=== PATIENT | male | born 1975 | race Caucasian/White ===

== ENCOUNTER 2020-05-22 11:45 | Outpatient (RCR) | payer SELFPAY | END 2020-05-31 23:59 | disposition home or self-care (01) | LOC: MOT 11:45 | PROVIDERS: Referring Provider Orthopaedic Surgery; Visit Provider Orthopaedic Surgery | DX: S54.00XD Injury of ulnar nerve at forearm level, unspecified arm, subsequent encounter (principal) | CPT/HCPCS: 97022; 97110; 97140; 97166 ==

== ENCOUNTER 2021-01-31 20:22 | Emergency (ER) | payer SELFPAY ==
[2021-01-31 20:30] VITALS: BP 185/105; PULSE 80; RESP 17; TEMP 36.6; O2SAT 99; BMI 25.1
--- NOTE | 2021-01-31 20:30 | CTR_ITS ---
PROCEDURE INFORMATION: Exam: CT Abdomen And Pelvis With Contrast Exam date and time: 01/31/2021 9:06 PM Age: 45 years old Clinical indication: Abdominal pain; Localized; Right; Patient HX: RT side abd pain. TECHNIQUE: Imaging protocol: Computed tomography of the abdomen and pelvis with contrast. Radiation optimization: All CT scans at this facility use at least one of these dose optimization techniques: automated exposure control; mA and/or kV adjustment per patient size (includes targeted exams where dose is matched to clinical indication); or iterative reconstruction. Contrast material: OMNI 300; Contrast volume: 95 ml; Contrast route: INTRAVENOUS (IV); COMPARISON: No relevant prior studies available. RADIATION DOSE METRICS: Total DLP (mGy-cm): 1130.31 FINDINGS: Liver: Normal. No mass. Gallbladder and bile ducts: Contracted gallbladder. The bile ducts are normal. Pancreas: Normal. No ductal dilation. Spleen: Normal. No splenomegaly. Adrenal glands: Normal. No mass. Kidneys and ureters: 6 mm calculus in the right ureter at the level of the iliac vessels. Moderate right hydronephrosis. Diffuse right renal edema. Perinephric and periureteral stranding with mild enhancement of the urothelium in the right renal collecting system. Small hypodense lesion in the left kidney is too small to characterize but is most likely a cyst. No follow-up imaging is recommended. Stomach and bowel: Multiple round filling defects within loops of small bowel is presumably food material. The stomach, small bowel, and colon are otherwise unremarkable. Appendix: The appendix is visualized and is normal. Intraperitoneal space: Unremarkable. No free air. No significant fluid collection. Vasculature: Unremarkable. No abdominal aortic aneurysm. Lymph nodes: Unremarkable. No enlarged lymph nodes. Urinary bladder: Unremarkable as visualized. Reproductive: Unremarkable as visualized. Bones/joints: Unremarkable. No acute fracture. Soft tissues: Unremarkable. CT/CT abdomen pelvis w con* [id number] IMPRESSION: 1. 6 mm obstructing calculus in the right ureter, at the level of the iliac vessels. 2. Edematous right kidney with mild right urothelial enhancement. Infection is not excluded. Clinical correlation recommended. COMMENTS: Consistent with the [employer]'s Incidental Findings Committee white paper (J Am Dane Radiol 2018): Any incidental renal lesion less than 1 cm or classified as too small to characterize, or any incidental cystic renal lesion characterized as simple-appearing, is likely benign. No follow-up imaging is recommended for these lesions per consensus recommendations based on imaging criteria. Radiation Dose CTDIVOL = (mGy): DLP = 1130.31 (mGy-cm)
[2021-01-31 20:40] VITALS: BP 170/92; PULSE 92; RESP 18; O2SAT 98
[2021-01-31 21:01] LABS: Basophils # 0.1 10^3/uL (0.0-0.1); Basophils % 0.7 %; Eosinophils # 0.7 10^3/uL (0.0-0.8); Eosinophils % 4.5 %; Hematocrit 45.1 % (42.0-52.0); Hemoglobin 14.4 g/dL (11.7-16.6); Lymphocytes # 3.1 10^3/uL (0.8-4.8); Lymphocytes % 20.2 %; Mean Corpuscular HGB Conc 31.9 g/dL (30.0-36.0); Mean Corpuscular Hemoglobin 29.8 pg (28.0-34.0); Mean Corpuscular Volume 93.2 fL (80-94); Mean Platelet Volume 11.1 fL (7.4-10.4); Monocytes # 1.5 10^3/uL (0.2-0.9); Monocytes % 9.4 %; Neutrophils # 9.98 10^3/uL (1.8-7.7); Neutrophils % 64.8 %; Nucleated Red Blood Cells % 0 %; Platelet Count 338 10^3/cmm (130-400); Red Blood Count 4.84 10^6/uL (4.1-5.3); Red Cell Distribution Width 15.3 % (12.1-15.1); White Blood Count 15.4 10^3/uL (4.0-10.0)
[2021-01-31] MEDS: sodium chloride 0.9% 1,000 ML 999 ML IV (21:01)
--- NOTE | 2021-01-31 21:02 | W.ED.ABDPA2 ---
HPI - Abdominal Pain General: Chief Complaint: Abdominal Pain Stated Complaint: severe lower abd pain Time Seen by Provider: 01/31/21 20:25 Source: patient Mode of arrival: ambulatory Limitations: no limitations History of Present Illness: HPI narrative: 45-year-old male states he started having abdominal pain this morning got much worse tonight. States it is into his right testicle along with right lower quadrant. He states the pain is very sharp in nature and rates it a 8 out of 10. He denies any worsening improving factors. Denies any vomiting or diarrhea. He has had some nausea. MD elicited complaint: abdominal pain Associated Symptoms: Reports nausea; Denies chills, dysuria and fever(s) Review of Systems Const: Denies: fever(s), chills, body aches or change in appetite Eyes: Denies: blurry vision or eye discomfort ENMT: Denies: throat pain or dental pain Card: Denies: chest pain Resp: Denies: dyspnea GI: Reports: abdominal pain and nausea : Denies: dysuria Musc: Denies: neck pain or back pain Skin/Breast: Denies: rash Neuro: Denies: headache(s) Psych: Denies: depression Yovanny/Lymph: Denies: easy bruising All/Imm: Denies: urticaria PFSH ED PFSH: Surgical History (Updated 05/24/20 @ 10:25 by KIKI Diaz) History of surgery on arm Social History (Updated 05/24/20 @ 09:36 by Fatimah Harrington LPN) Smoking and tobacco status: current every day smoker cigarettes Packs smoked per day: 0.75 Quit status (tobacco): not considering quitting Alcohol intake: current Alcohol intake frequency: holidays/special occasions only History of recent travel: No Current gender identity: Male Physical Exam Const: COMMON NORMALS: no acute distress, patient oriented x3 and healthy appearing HENMT: COMMON NORMALS: normocephalic and atraumatic HEAD & SCALP: normocephalic and atraumatic Eye: COMMON NORMALS: Equal, round and reactive pupils present and EOMs intact bilaterally PUPIL: Yes Equal, round and reactive pupils present Neck/C-Spine: COMMON NORMALS: full ROM and supple Chest: COMMONS NORMALS: normal inspection of the chest and normal palpation of entire chest wall Resp: COMMON NORMALS: normal respiratory effort, No retractions, No use of accessory muscles and clear to auscultation bilaterally AUSCULTATION: clear to auscultation bilaterally Cardio: COMMON NORMALS: regular rate, regular rhythm and No murmurs present (Cardio) RATE: regular rate RHYTHM: regular rhythm GI: COMMON NORMALS: Normal to inspection, nondistended, normoactive bowel sounds present, Soft to palpation and no masses PALPATION: Yes Soft to palpation and Yes Tenderness to palpation present (GI) Details: RLQ Extremity: COMMON NORMALS: normal to inspection and full ROM Neuro: COMMON NORMALS: patient oriented x3, moves all extremities and no focal motor deficits Psych: COMMON NORMALS: mental status grossly normal, Normal thought process present and cooperative THOUGHT PROCESS: Normal thought process present Skin: COMMON NORMALS: no rashes or lesions noted and no wounds GENERAL SKIN EXAM: no rashes or lesions noted Course Vital Signs: Vital signs: Vital Signs Temperature 97.9 F 01/31/21 20:30 Pulse Rate 89 01/31/21 22:38 Respiratory Rate 18 01/31/21 22:38 Blood Pressure 166/104 01/31/21 22:38 Pulse Oximetry 98 01/31/21 22:38 MDM - Abdominal Pain MDM Narrative: Medical decision making narrative: Patient presents here with flank pain and was found to have a kidney stone. He has no signs of urinary tract infection. His pain is much improved here. We will discharge him home with a strainer and he is to follow-up with Dr. Landeros. He is to return if worsening. He understands agrees to plan. Lab Data: Labs: Lab Results 01/31/21 01/31/21 01/31/21 Range/Units 20:58 20:58 21:29 WBC 15.4 H (4.0-10.0) 10^3/ uL RBC 4.84 (4.1-5.3) 10^6/u L Hgb 14.4 (11.7-16.6) g/dL Hct 45.1 (42.0-52.0) % MCV 93.2 (80-94) fL MCH 29.8 (28.0-34.0) pg MCHC 31.9 (30.0-36.0) g/dL RDW 15.3 H (12.1-15.1) % Plt Count 338 (130-400) 10^3/c mm MPV 11.1 H (7.4-10.4) fL Neut % (Auto) 64.8 % Lymph % (Auto) 20.2 % Traverse % (Auto) 9.4 % Eos % (Auto) 4.5 % Baso % (Auto) 0.7 % Neut # (Auto) 9.98 H (1.8-7.7) 10^3/u L Lymph # (Auto) 3.1 (0.8-4.8) 10^3/u L Traverse # (Auto) 1.5 H (0.2-0.9) 10^3/u L Eos # (Auto) 0.7 (0.0-0.8) 10^3/u L Baso # (Auto) 0.1 (0.0-0.1) 10^3/u L Nucleated RBC % (a uto) 0 % Nucleated RBCs # 0.0 /100WBC Sodium 136 (136-145) mmol/L Potassium 4.3 (3.5-5.1) mmol/L Chloride 102 (98-107) mmol/L Carbon Dioxide 22 (22-29) mmol/L Anion Gap 16.3 (5-19) BUN 13 (6-20) mg/dL Creatinine 0.7 (0.7-1.2) mg/dL GFR Calculation 121.4 (90-130) mL/min Glucose 94 (65-115) mg/dL Calculated Osmolal ity 282 L (285-295) mOsm/k g Calcium 8.3 L (8.5-10.5) mg/dL Total Bilirubin 0.2 (0.15-1.2) mg/dL AST 29 (0-40) U/L ALT 22 (0-41) U/L Alkaline Phosphata se 128 (40-130) IU/L Total Protein 7.1 (6.6-8.7) g/dL Albumin 4.2 (3.5-5.2) g/dL Globulin 2.9 (1.3-4.6) g/dL Lipase 32 (13-60) U/L Urine Color Other (Yellow) Urine Appearance Cloudy (CLEAR) Urine pH 8 H (5-7) Ur Specific Gravit y 1.025 (1.005-1.030) Urine Protein Neg (Negative) Urine Glucose (UA) Norm (Normal) Urine Ketones Negative (Negative) Urine Blood 3+ H (Negative) Urine Nitrate Negative (Negative) Urine Bilirubin Neg (Negative) Prot Sulfosalicyli c Acd Negative (Negative) Urine Urobilinogen Norm (Negative) mg/dL Ur Leukocyte Brittni ase Trace H (Negative) Urine RBC Too numerous to c nt H (0-2) /hpf Urine WBC 0-4 H (0-5) /hpf Ur Squamous Epith Cells 0-4 H (0-5) /hpf Amorphous Sediment 4+ /hpf Urine Bacteria 1+ H (NONE) /hpf Urine Mucus N /hpf Imaging Data ^: CT Abd/Pel: Radiologist's impression: [employer] [address] [address] Scan Report Signed Patient: Bennett Barraza Unit #: [id number] : 1975 Age/Sex: 45 / M ADM Date: 01/31/21 Loc: ER Room/Bed: Attending Dr: Ordering Provider/Ordering MD: Isrrael Wu MD Date of Service: 01/31/21 Procedure(s): CT abdomen pelvis w con* [id number] Accession Number(s): [id number] Report Number: [id number] PROCEDURE INFORMATION: Exam: CT Abdomen And Pelvis With Contrast Exam date and time: 01/31/2021 9:06 PM Age: 45 years old Clinical indication: Abdominal pain; Localized; Right; Patient HX: RT side abd pain. TECHNIQUE: Imaging protocol: Computed tomography of the abdomen and pelvis with contrast. Radiation optimization: All CT scans at this facility use at least one of these dose optimization techniques: automated exposure control; mA and/or kV adjustment per patient size (includes targeted exams where dose is matched to clinical indication); or iterative reconstruction. Contrast material: OMNI 300; Contrast volume: 95 ml; Contrast route: INTRAVENOUS (IV); COMPARISON: No relevant prior studies available. RADIATION DOSE METRICS: Total DLP (mGy-cm): 1130.31 FINDINGS: Liver: Normal. No mass. Gallbladder and bile ducts: Contracted gallbladder. The bile ducts are normal. Pancreas: Normal. No ductal dilation. Spleen: Normal. No splenomegaly. Adrenal glands: Normal. No mass. Kidneys and ureters: 6 mm calculus in the right ureter at the level of the iliac vessels. Moderate right hydronephrosis. Diffuse right renal edema. Perinephric and periureteral stranding with mild enhancement of the urothelium in the right renal collecting system. Small hypodense lesion in the left kidney is too small to characterize but is most likely a cyst. No follow-up imaging is recommended. Stomach and bowel: Multiple round filling defects within loops of small bowel is presumably food material. The stomach, small bowel, and colon are otherwise unremarkable. Appendix: The appendix is visualized and is normal. Intraperitoneal space: Unremarkable. No free air. No significant fluid collection. Vasculature: Unremarkable. No abdominal aortic aneurysm. Lymph nodes: Unremarkable. No enlarged lymph nodes. Urinary bladder: Unremarkable as visualized. Reproductive: Unremarkable as visualized. Bones/joints: Unremarkable. No acute fracture. Soft tissues: Unremarkable. CT/CT abdomen pelvis w con* [id number] IMPRESSION: 1. 6 mm obstructing calculus in the right ureter, at the level of the iliac vessels. 2. Edematous right kidney with mild right urothelial enhancement. Infection is not excluded. Clinical correlation recommended. COMMENTS: Discharge Plan Discharge Patient Disposition: Home Clinical Impression: Kidney stone Condition: Stable Prescriptions: New hydrocodone-acetaminophen 5-325 mg tablet 1 tab PO Q6H PRN (Reason: pain) Qty: 14 RF: 0 ondansetron 4 mg tablet,disintegrating 4 mg PO Q6H PRN (Reason: nausea and vomiting) Qty: 14 RF: 0 Discharge Orders: Discharge ED (Routine); Ordered 01/31/21 Ordered By: Isrrael Wu Referrals: Kirk Landeros MD [Physician] - 1-3 days Discharge Diet: Advance as tolerated Discharge Activity: Resume usual activity Patient Instructions: Kidney Stones (ED), Opioid Safety Coding Level of Care Code 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
[2021-01-31] MEDS: ondansetron 2 mg/ML SDV 2 mL 4 MG IVP (21:11)
[2021-01-31] MEDS: HYDROmorphone 1 mg/mL INJ 1 mL IVP ×2 (21:11→22:33)
[2021-01-31] MEDS: iohexol 300 mg/mL 100 mL Btl IV (21:18)
[2021-01-31 21:19] LABS: Alanine Aminotransferase 22 U/L (0-41); Albumin Level 4.2 g/dL (3.5-5.2); Alkaline Phosphatase 128 IU/L (40-130); Blood Urea Nitrogen 13 mg/dL (6-20); Calcium 8.3 mg/dL (8.5-10.5); Carbon Dioxide 22 mmol/L (22-29); Chloride 102 mmol/L (98-107); Globulin 2.9 g/dL (1.3-4.6); Glomerular Filtration Rate 121.4 mL/min (90-130); Glucose 94 mg/dL (65-115); Lipase 32 U/L (13-60); Osmolality Calculated 282 mOsm/kg (285-295); Sodium 136 mmol/L (136-145); Total Bilirubin 0.2 mg/dL (0.15-1.2); Total Protein 7.1 g/dL (6.6-8.7)
[2021-01-31 21:20] LABS: Anion Gap 16.3 (5-19); Aspartate Amino Transferase 29 U/L (0-40); Potassium 4.3 mmol/L (3.5-5.1)
[2021-01-31 21:43] LABS: Add Urine Microscopic? YES; Bilirubin Urine Neg (Negative); Blood Urine 3+ (Negative); Glucose Urine UA Norm (Normal); Ketones Urine Negative (Negative); Leukocyte Esterase Urine Trace (Negative); Nitrate Urine Negative (Negative); Protein Urine Neg (Negative); Specific Gravity, Urine 1.025 (1.005-1.030); Sulfosalicylic Acid Urine Negative (Negative); Urine Appearance Cloudy (CLEAR); Urine Color Other (Yellow); Urobilinogen Urine Norm (Negative); pH Urine 8 (5-7)
[2021-01-31 21:44] LABS: Add Urine Culture? No; Amorphous Sediment Urine 4+ /hpf; Bacteria Urine 1+ /hpf; Mucus Urine N /hpf; RBC Urine TOO NUMEROUS TO CNT /hpf (0-2); Squamous Epithelial Cell Urine 0-4 /hpf (0-5); WBC Urine 0-4 /hpf (0-5)
[2021-01-31 22:05] VITALS: PULSE 83; RESP 16; O2SAT 99
[2021-01-31 22:33] VITALS: RESP 18; O2SAT 97
[2021-01-31] MEDS: ketorolac 30 mg/mL INJ IVP (22:34)
[2021-01-31 22:38] VITALS: BP 166/104; PULSE 89; RESP 18; O2SAT 98
[2021-01-31 22:50] VITALS: BP 170/106; PULSE 85; RESP 18; TEMP 36.6; O2SAT 97
--- NOTE | 2021-02-01 09:27 | DCPLANNER ---
broiler manager had message to schedule a follow up appointment for patient with Dr. Landeros for kidney stone. broiler manager called the office of Dr. Landeros, spoke with Emely, gave clinic patients information. broiler manager was told that patients information would be printed and reviewed. Clinic will call patient with appointment information.
--- NOTE | 2021-02-02 11:25 | DCPLANNER ---
Patient had an appointment scheduled for 02.02.21 - appointment cancelled.
== END 2021-01-31 22:59 | disposition home or self-care (01) ==
PROVIDERS: Emergency Provider Emergency Medicine
DX: N20.0 Calculus of kidney (principal); F17.210 Nicotine dependence, cigarettes, uncomplicated
CPT/HCPCS: 74177; 80053; 81001; 83690; 85025; 96361; 96374; 96375; 96376; 99284; J1170; J1885; J2405; J7030; Q9967

== ENCOUNTER 2021-02-08 07:58 | Outpatient (CLI) | payer SELFPAY ==
--- NOTE | 2021-02-08 08:05 | XR_ITS ---
WS: [id number] KUB, AP view, 02/08/2021 Clinical Data: N20.0 - Calculus of kidney Comparison: CT abdomen and pelvis, 01/31/2021 Findings: No abnormal intraabdominal masses or calcifications are seen. There is no dilatated small bowel or ev idence of obstruction. The distal right ureteral calculus seen on CT abdomen pelvis is not identified on this study. The rig ht kidney is obscured by overlying fecal material in the colon. XR/XR KUB [id number] Impression: Negative KUB.
== END 2021-02-08 07:59 | disposition home or self-care (01) ==
LOC: RAD 08:02
PROVIDERS: PCP Urology; Visit Provider Urology
DX: N20.0 Calculus of kidney (principal)
CPT/HCPCS: 74018; 81003

== ENCOUNTER 2021-02-19 09:03 | Outpatient (CLI) | payer SELFPAY ==
--- NOTE | 2021-02-19 09:08 | XRR_ITS ---
PROCEDURE INFORMATION: Exam: XR Abdomen Exam date and time: 02/19/2021 9:08 AM Age: 45 years old Clinical indication: Condition or disease; Kidney or ureter condition; Calculus (stone) in ureter; Additional info: Ureteral stone TECHNIQUE: Imaging protocol: XR of the abdomen. Views: Frontal supine view of the abdomen. 1 View. COMPARISON: CR XR KUB [id number] 02/08/2021 8:11 AM FINDINGS: Gastrointestinal tract: Prominent bowel gas and stool. Intraperitoneal space: Residual subcentimeter pelvic calcifications, presumably vascular in etiology. CT detected 6 mm right ureteral calculus is not well visualized on the current study, and can be better evaluated with repeat CT if clinically indicated. Incomplete visualization of the superior most abdomen. Organs: Partial obscuration of the renal fossa by overlying bowel gas and stool. Bones/joints: Unremarkable. XR/XR KUB [id number] IMPRESSION: CT detected 6 mm right ureteral calculus is not well visualized on the current study, and can be better evaluated with repeat CT if clinically indicated.
== END 2021-02-19 09:04 | disposition home or self-care (01) ==
LOC: RAD 09:06
PROVIDERS: Visit Provider Urology
DX: N20.1 Calculus of ureter (principal)
CPT/HCPCS: 74018; 81003

== ENCOUNTER 2021-03-08 09:03 | Outpatient (CLI) | payer SELFPAY ==
--- NOTE | 2021-03-08 09:00 | XR_ITS ---
WS: [id number] KUB, AP view, 03/08/2021 Clinical Data: STONE Comparison: KUB, 02/19/2021. Findings: No abnormal intraabdominal masses or calcifications are seen. There is no dilatated small bowel or ev idence of obstruction. Fecal material and bowel gas obscure detail over both kidneys. There are phleboliths in the true pelv is. XR/XR KUB [id number] Impression: Negative KUB.
== END 2021-03-08 09:04 | disposition home or self-care (01) ==
PROVIDERS: Visit Provider Urology
DX: N20.9 Urinary calculus, unspecified (principal); Z20.822 Contact with and (suspected) exposure to COVID-19
CPT/HCPCS: 74018; 81003; 87635

== ENCOUNTER 2021-03-09 12:52 | Day surgery (SDC) | payer SELFPAY ==
[2021-03-08 14:30] VITALS: BMI 25.8
[2021-03-09] VITALS (10 sets, daily range): BP systolic 131–175; BP diastolic 77–117; PULSE 66–101; RESP 13–24; TEMP 36.1–36.8; O2SAT 96–99
--- NOTE | 2021-03-09 13:01 | XR_ITS ---
WS: [id number] KUB, AP view, 03/09/2021 Clinical Data: Preop ESWL Comparison: KUB, 03/08/2021. Findings: No abnormal intraabdominal masses are seen. There is no dilatated small bowel or evidence of obstruct ion. There is a right true pelvic calcification measuring 0.6 cm which could represent the distal right ur eteral calculus. Fecal material in colon gas obscures detail over the kidneys. XR/XR KUB [id number] Impression: Right true pelvic calcification which may represent distal right ureteral calcu wm.
[2021-03-09] MEDS: sodium chloride 0.9% 1,000 ML 30 ML (13:56)
--- NOTE | 2021-03-09 14:02 | ANES.PREANE2 ---
Pre-Anesthetic Assessment Pre-Anesthetic Assessment: Height/Weight: Height 1.78 m Weight 81.647 kg Temp Pulse Resp BP Pulse Ox 98.2 F 91 18 175/117 97 03/09/21 13:35 03/09/21 13:35 03/09/21 13:35 03/09/21 13:35 03/09/21 13:35 Preop Diagnosis: Refractory right distal ureteral stone, Symptomatic Proposed Procedure: Operation Date: 03/09/21 13:15 Proposed Procedures p ESWL Extracorporeal Shockwave Lithotrispy 74728 38436 n20.1(Right) - Kirk Landeros MD s possible Cystoscopy(Not Applicable) - Kirk Landeros MD s Ureteral Stent Placement(Not Applicable) - Kirk Landeros MD Familial anesthetic complications: None Was Beta Gaetano taken within 24 hours: N/A Was Clonidine taken within 24 hours: N/A Last intake: Intake Last Liquid Date 03/09/21 Last Liquid Time 09:30 (water) Last Solid Date 03/08/21 Last Solid Time 18:30 Social: Social History: Alcohol and Tobacco Comment: up to a pint of vodka a day - denies any hx of withdrawal symptom Exam: Pre-Anes Outpt Exam: alert, oriented x 3, clear to auscultation bilaterally and regular rate & rhythm Airway: Cervical ROM: WNL MP: 3 Dentition: Loose (multiple loose) CV/HEM: CV/HEM: HTN (pre-HTN (managed by lifestyle)) Hepatic: Hepatic: Hepatitis (C) Musc/skel: Musc/skel: RA Comments: Remote r hand injury Anesthetic Plan: ASA status: 2 Anesthesia: General Risk of > 500 ml blood loss (7ml/kg in children): No PFSH Anesthesia PFSH: Medical History Right ureteral stone Surgical History History of surgery on arm Family History Father , at age 44 Hepatitis C Cirrhosis of liver Social History Alcohol intake: current Alcohol intake frequency: few times a week Marital status: Current occupational status: disabled History of recent travel: No Data Anesthesia Cardiac Studies: No Data to Display
[2021-03-09] MEDS: fentaNYL 50 mcg/mL INJ 2mL IVP (15:37)
--- NOTE | 2021-03-09 15:56 | W.PM.OPSUD ---
Surgery/Procedure H&P Update DATE OF PROCEDURE: March 09, 2021 DATE H&P PERFORMED: 03/08/21 H&P UPDATE INFORMATION: I have reviewed H&P completed within last 30 days, I have examined patient prior to procedure, No changes to prior documentation and H&P is in [facility] EMR on date indicated CHANGES TO PREVIOUS DOCUMENTATION: Stone in same position on today's KUB as it was in clinic. To proceed as planned. Informed consent reviewed and explained and agreed upon again. PREOP DIAGNOSIS: Refractory right distal ureteral stone, Symptomatic PLANNED PROCEDURE: Operation Date: 03/09/21 13:15 Proposed Procedures p ESWL Extracorporeal Shockwave Lithotrispy 01146 05203 n20.1(Right) - Kirk Landeros MD s possible Cystoscopy(Not Applicable) - Kirk Landeros MD s Ureteral Stent Placement(Not Applicable) - Kirk Landeros MD
--- NOTE | 2021-03-09 15:57 | P.OP_ITS ---
Operative Report Date of procedure: March 09, 2021 Pre-op Diagnosis: Refractory right distal ureteral stone, Symptomatic Post-op diagnosis: same Procedure Done: 1. Extracorporeal shockwave lithotripsy right distal ureteral stone, no stent Surgeon: Tigre Aoc Aadc Operations Staff Officer: Viola Lobo Anesthesia: General Estimated blood loss: None Urine output: Not measured Complications: None Condition: stable Disposition: PACU Brief History: Bennett is a very pleasant 45-year-old white male recently diagnosed with a right ureteral calculus. He has undergone an extensive period of trying to pass it spontaneously but it is reached the distal ureter and no farther. Has had increasing symptoms over the last several days and requested abandonment of conservative measures in hopes of definitive treatment. Based on that he is considered an urgent/time sensitive case and is admitted to outpat ient surgery for extracorporeal shockwave lithotripsy to the right distal ureteral stone possible stent Procedure: After routine preoperative evaluation examination and obtaining of informed consent he was taken to the operating suite on 03/09/2021 where general anesthesia was administered without difficulty after appropriate timeout was performed, SCDs confirmed to be functioning, preoperative antibiotics administered, beta-derrick protocol confirmed. Placed in supine position on the Dornier unit such that the stone was located at the focal point with the shock head positioned anteriorly. The stone was easily identified and focused upon. Biplanar fluoroscopy was utilized for localization. Shockwave was initiated intensity of 1 and advanced an intensity of 4. Rate was initiated 60 and later advanced to a rate of 90 after significant change was noted TOTAL SHOCKS: 2000 RESULTS: Excellent change. Could not clearly see any definitive stone fragments at the completion. Because of the excellent response it was decided to not leave a stent in. Awakened in the operating room and returned to recovery room in stable condition. Tolerated procedure well without complications. PLANS: 1. Anticipate discharge from outpatient surgery tonight 2. Follow-up: 2 weeks with KUB
--- NOTE | 2021-03-09 18:48 | PC.NURSE ---
HYDROCODONE RX SENT TO [facility] YESTERDAY BY DR HORAN. PT SAID HE DIDN'T KNOW IT WAS NARCOTICS SO HE DIDN'T PICK IT UP YET. DR HORAN NOTIFIED AND HE SENT A SCRIPT TO [facility] FOR ENOUGH PAIN MEDICATION TO LAST TO MORNING WHEN HE CAN FILL FIRST RX.
== END 2021-03-09 18:20 | disposition home or self-care (01) ==
PROVIDERS: Visit Provider Urology
PROC: (CPT 50590; principal; 2021-03-09 13:15)
DX: N20.1 Calculus of ureter (principal); I10 Essential (primary) hypertension; Z86.19 Personal history of other infectious and parasitic diseases; M06.9 Rheumatoid arthritis, unspecified
CPT/HCPCS: 50590; 74018; J1100; J2250; J2405; J2704; J2710; J3010; J3490; J7030

== ENCOUNTER 2021-05-01 12:09 | Outpatient (CLI) | payer SELFPAY ==
--- NOTE | 2021-05-01 12:13 | XRR_ITS ---
PROCEDURE INFORMATION: Exam: XR Abdomen Exam date and time: 05/01/2021 12:13 PM Age: 45 years old Clinical indication: Condition or disease; Kidney or ureter condition; Calculus (stone) in kidney; Prior surgery; Additional info: Ureteral stone TECHNIQUE: Imaging protocol: XR of the abdomen. Views: Frontal supine view of the abdomen. 1 View. COMPARISON: CR XR KUB [id number] 03/09/2021 1:14 PM FINDINGS: Gastrointestinal tract: Normal. No bowel dilation. Organs: Previously suspected right pelvic 6 mm ureteral calculus is no longer visualized. Vasculature: Several calcified phleboliths seen. Bones/joints: Unremarkable. Other findings: Punctate rounded radiodensity seen over the left upper pelvis may be extrinsic to the patient. XR/XR KUB [id number] IMPRESSION: 1. Previously suspected right pelvic 6 mm ureteral calculus is no longer visualized. 2. Punctate rounded radiodensity seen over the left upper pelvis may be extrinsic to the patient. 3. Several calcified phleboliths seen.
== END 2021-05-01 12:10 | disposition home or self-care (01) ==
PROVIDERS: Visit Provider Urology
DX: N20.1 Calculus of ureter (principal); I87.8 Other specified disorders of veins; R10.9 Unspecified abdominal pain
CPT/HCPCS: 74018; 81003

== ENCOUNTER 2021-05-30 13:41 | Outpatient (CLI) | payer SELFPAY ==
--- NOTE | 2021-05-30 13:00 | XR_ITS ---
WS: [id number] Exam: XR KUB [id number] Date/Time of Exam: 05/30/2021 1:46 PM Reason For Exam: ureteral stone No bowel obstruction or free air. No calcifications noted in the region of the kidneys. No sign of or rupal enlargement. Regional bony elements appear normal. XR/XR KUB [id number] IMPRESSION: 1. No acute abdominal process.
== END 2021-05-30 13:42 | disposition home or self-care (01) ==
PROVIDERS: Visit Provider Urology
DX: N20.1 Calculus of ureter (principal)
CPT/HCPCS: 74018; 81003

== ENCOUNTER 2023-03-30 19:06 | Observation (INO) | payer MEDICAID, SELFPAY ==
[2023-03-30 19:26] VITALS: BP 196/116; PULSE 88; RESP 16; TEMP 36.4; O2SAT 99; BMI 25.1
--- NOTE | 2023-03-30 20:48 | W.ED.ABDPA2 ---
HPI - Abdominal Pain General: Chief Complaint: Abdominal Pain Stated Complaint: abd pain Time Seen by Provider: 03/30/23 20:48 History of Present Illness: Mr. Barraza is a 47-year-old gentleman with history of kidney stones presenting to the emergency department for abdominal pain. He notes onset of symptoms approximately 2 PM today without known specific provoking event. He notes some urinary hesitancy and periumbilical abdominal pain. In the past he has had pain like this associated with kidney stones however has also had other locations of pain. Severe in intensity. Sharp in quality. No other specific changes in health, exacerbating, or alleviating factors identified. Onset (ago): hour(s) Pain Consistency: constant Severity: severe Quality: sharp Review of Systems General: Reports: 10 or more systems reviewed and unremarkable except in HPI and below PFSH ED PFSH: Medical History Carpal tunnel syndrome on both sides H/O fracture of tibia surgery Hypertension Lipoma excised from back Right ureteral stone Surgical History History of surgery on arm Family History Father , at age 44 Hepatitis C Cirrhosis of liver Social History Alcohol intake: current Alcohol intake frequency: few times a week Substance/Drug Use: current Substance/Drug use frequency: daily Marital status: Current occupational status: disabled Physical Exam Const: COMMON NORMALS: alert GENERAL APPEARANCE: cooperative and well developed HENMT: COMMON NORMALS: normocephalic and atraumatic HEAD & SCALP: normocephalic and atraumatic Eye: COMMON NORMALS: conjunctivae normal CONJUNCTIVA: Yes conjunctivae normal SCLERA: sclerae normal Neck/C-Spine: COMMON NORMALS: supple GENERAL: Yes trachea midline Resp: COMMON NORMALS: clear to auscultation bilaterally EFFORT & INSPECTION: Yes able to speak in complete sentences AUSCULTATION: clear to auscultation bilaterally Cardio: COMMON NORMALS: regular rate and regular rhythm RATE: regular rate RHYTHM: regular rhythm GI: COMMON NORMALS: Soft to palpation PALPATION: Yes Soft to palpation, Yes Tenderness to palpation present (GI), No Guarding due to palpation present (GI) and No Rigid due to palpation Extremity: GENERAL: Yes normal exam except as noted and No edema Neuro: COMMON NORMALS: moves all extremities SENSORIUM/ORIENTATION: Yes alert and No Orientation impaired Psych: COMMON NORMALS: mental status grossly normal and Normal thought process present THOUGHT PROCESS: Normal thought process present Course Vital Signs: Vital signs: Vital Signs Temperature 98.3 F 04/01/23 13:40 Pulse Rate 86 04/01/23 13:40 Respiratory Rate 18 04/01/23 13:40 Blood Pressure 164/90 04/01/23 13:40 Pulse Oximetry 98 04/01/23 13:40 Oxygen Delivery Me thod Room Air 04/01/23 11:14 MDM - Abdominal Pain Medical Decision Making 47-year-old gentleman presenting with abdominal symptoms. Exam as above. Uncomfortable. No evidence of acute surgical abdomen. Labs with leukocytosis, normal hemoglobin and platelet count. Metabolic panel with mildly elevated BUN and perhaps minimal dehydration. Urinalysis with probable UTI. Given severity of symptoms CT imaging is appropriate. Appendix appears mildly dilated however there is air in the tip. There is hepatic steatosis and fluid within the small bowel which may be enteritis. Discussed with surgery service. They will consult and agreed patient would be reasonable for inpatient observation. During ED course patient treated with antiemetic, analgesia, fluids. The results of ED evaluation were discussed with the patient including plan for admission due to requirement for level of care not available if discharged to prevent significant worsening/deterioration. Patient agreeable with plan. Discussed with hospitalist service who was agreeable to admit patient. Medical Records I reviewed the patient's medical records. Lab Data I reviewed the patient's lab results. 04/01/23 05:09 04/01/23 05:09 Labs/Radiology: Radiology Impressions Abdomen/Pelvis CT 03/30/23 22:04 IMPRESSION: 1. Appendix is mildly dilated to 8.7 mm with possible minimal surrounding edema, however, demonstrates air in the tip, findings are not definitive for appendicitis by CT alone, please closely correlate clinically. 2. Hepatic steatosis. 3. Heterogeneous appearance of the kidneys may be due to bolus timing, please correlate for pyelonephritis. 4. Prominent fluid in the small bowel without dilation may reflect an enteritis. 5. Diverticulosis without diverticulitis. Laboratory Results WBC 18.7 10^3/uL (4.0-10.0) H 03/30/23 21:00 RBC 5.00 10^6/uL (4.1-5.3) 03/30/23 21:00 Hgb 15.9 g/dL (11.7-16.6) 03/30/23 21:00 Hct 47.5 % (42.0-52.0) 03/30/23 21:00 MCV 95.0 fl (80-94) H 03/30/23 21:00 MCH 31.8 pg (28.0-34.0) 03/30/23 21:00 MCHC 33.5 g/dL (30.0-36.0) 03/30/23 21:00 RDW 13.0 % (12.1-15.1) 03/30/23 21:00 Plt Count 326 10^3/cmm (130-400) 03/30/23 21:00 MPV 10.8 fL (7.4-10.4) H 03/30/23 21:00 Neut % (Auto) 82.2 % 03/30/23 21:00 Lymph % (Auto) 10.2 % 03/30/23 21:00 [place] % (Auto) 5.9 % 03/30/23 21:00 Eos % (Auto) 0.9 % 03/30/23 21:00 Baso % (Auto) 0.3 % 03/30/23 21:00 Neut # (Auto) 15.38 10^3/uL (1.8-7.7) H 03/30/23 21:00 Lymph # (Auto) 1.9 10^3/uL (0.8-4.8) 03/30/23 21:00 [place] # (Auto) 1.1 10^3/uL (0.2-0.9) H 03/30/23 21:00 Eos # (Auto) 0.2 10^3/uL (0.0-0.8) 03/30/23 21:00 Baso # (Auto) 0.1 10^3/uL (0.0-0.1) 03/30/23 21:00 Nucleated RBC % (auto) 0 % 03/30/23 21:00 Nucleated RBCs # 0.0 /100WBC 03/30/23 21:00 Sodium 136 mmol/L (136-145) 03/30/23 21:00 Potassium 3.7 mmol/L (3.5-5.1) 03/30/23 21:00 Chloride 99 mmol/L (98-107) 03/30/23 21:00 Carbon Dioxide 24 mmol/L (22-29) 03/30/23 21:00 Anion Gap 16.7 (5-19) 03/30/23 21:00 BUN 24 mg/dL (6-20) H 03/30/23 21:00 Creatinine 0.9 mg/dL (0.7-1.2) 03/30/23 21:00 GFR Calculation 90.1 mL/min (90-130) 03/30/23 21:00 Glucose 117 mg/dL (65-115) H 03/30/23 21:00 Calculated Osmolality 287 mOsm/kg (285-295) 03/30/23 21:00 Calcium 9.9 mg/dL (8.5-10.5) 03/30/23 21:00 Total Bilirubin 0.7 mg/dL (0.15-1.2) 03/30/23 21:00 AST 27 U/L (0-40) 03/30/23 21:00 ALT 23 U/L (0-41) 03/30/23 21:00 Alkaline Phosphatase 137 U/L (40-130) H 03/30/23 21:00 Total Protein 7.8 g/dL (6.6-8.7) 03/30/23 21:00 Albumin 4.3 g/dL (3.5-5.2) 03/30/23 21:00 Globulin 3.5 g/dL (1.3-4.6) 03/30/23 21:00 Lipase 18 U/L (13-60) 03/30/23 21:00 Urine Color Yellow (Yellow) 03/30/23 21:43 Urine Appearance Hazy (CLEAR) A 03/30/23:43 Urine pH 6 (5-7) 03/30/23 21:43 Ur Specific [place] 1.020 (1.005-1.030) 03/30/23 21:43 Urine Protein Trace (Negative) 03/30/23:43 Urine Glucose (UA) 1+ (Normal) H 03/30/23 21:43 Urine Ketones Negative (Negative) 03/30/23 21:43 Urine Blood Neg (Negative) 03/30/23 21:43 Urine Nitrate Negative (Negative) 03/30/23 21:43 Urine Bilirubin Neg (Negative) 03/30/23 21:43 Urine Urobilinogen Norm mg/dL (Negative) 03/30/23 21:43 Ur Leukocyte Esterase Trace (Negative) H 03/30/23 21:43 Urine RBC 0-4 /hpf (0-2) H 03/30/23 21:43 Urine WBC 5-10 /hpf (0-5) H 03/30/23 21:43 Ur Squamous Epith Cells 0-4 /hpf (0-5) H 03/30/23 21:43 Amorphous Sediment Not Reportable 03/30/23 21:43 Urine Bacteria 3+ /hpf (NONE) H 03/30/23 21:43 Hyaline Casts 0-4 /lpf H 03/30/23 21:43 Discharge Plan Discharge Patient Disposition: Placed in Observation Admit Provider: Jasvir Dolan Clinical Impression: Abdominal pain, Leukocytosis Coding Level of Care Code ED Voice Data Communications Engineer for Tray Castillo
[2023-03-30] MEDS: ondansetron 2 mg/ML SDV 2 mL 4 MG IVP (21:03)
[2023-03-30] MEDS: ketorolac 30 mg/mL INJ 15 MG IVP (21:03)
[2023-03-30] MEDS: morphine 4 mg/mL SDV 1 mL IVP ×2 (21:03→22:25)
[2023-03-30 21:16] VITALS: BP 169/110; PULSE 84; RESP 16; O2SAT 96
[2023-03-30 21:30] LABS: Basophils # 0.1 10^3/uL (0.0-0.1); Basophils % 0.3 %; Eosinophils # 0.2 10^3/uL (0.0-0.8); Eosinophils % 0.9 %; Hematocrit 47.5 % (42.0-52.0); Hemoglobin 15.9 g/dL (11.7-16.6); Lymphocytes # 1.9 10^3/uL (0.8-4.8); Lymphocytes % 10.2 %; Mean Corpuscular HGB Conc 33.5 g/dL (30.0-36.0); Mean Corpuscular Hemoglobin 31.8 pg (28.0-34.0); Mean Platelet Volume 10.8 fL (7.4-10.4); Monocytes # 1.1 10^3/uL (0.2-0.9); Monocytes % 5.9 %; Neutrophils # 15.38 10^3/uL (1.8-7.7); Neutrophils % 82.2 %; Nucleated Red Blood Cells % 0 %; Platelet Count 326 10^3/cmm (130-400); White Blood Count 18.7 10^3/uL (4.0-10.0)
[2023-03-30 21:32] LABS: Alanine Aminotransferase 23 U/L (0-41); Albumin Level 4.3 g/dL (3.5-5.2); Alkaline Phosphatase 137 U/L (40-130); Anion Gap 16.7 (5-19); Aspartate Amino Transferase 27 U/L (0-40); Blood Urea Nitrogen 24 mg/dL (6-20); Calcium 9.9 mg/dL (8.5-10.5); Carbon Dioxide 24 mmol/L (22-29); Chloride 99 mmol/L (98-107); Creatinine Clr Calc Pharmacy 110.5119; Globulin 3.5 g/dL (1.3-4.6); Glomerular Filtration Rate 90.1 mL/min (90-130); Glucose 117 mg/dL (65-115); Lipase 18 U/L (13-60); Osmolality Calculated 287 mOsm/kg (285-295); Potassium 3.7 mmol/L (3.5-5.1); Sodium 136 mmol/L (136-145); Total Bilirubin 0.7 mg/dL (0.15-1.2); Total Protein 7.8 g/dL (6.6-8.7)
[2023-03-30 21:49] LABS: Add Urine Microscopic? YES; Bilirubin Urine Neg (Negative); Blood Urine Neg (Negative); Glucose Urine UA 1+ (Normal); Ketones Urine Negative (Negative); Leukocyte Esterase Urine Trace (Negative); Nitrate Urine Negative (Negative); Protein Urine Trace (Negative); Urine Appearance Hazy (CLEAR); Urine Color Yellow (Yellow); Urobilinogen Urine Norm (Negative); pH Urine 6 (5-7)
[2023-03-30 22:02] LABS: Bacteria Urine 3+ /hpf; Hyaline Casts Urine 0-4 /lpf; RBC Urine 0-4 /hpf (0-2); Squamous Epithelial Cell Urine 0-4 /hpf (0-5)
--- NOTE | 2023-03-30 22:04 | CTR_ITS ---
PROCEDURE INFORMATION: Exam: CT Abdomen And Pelvis With Contrast Exam date and time: 03/30/2023 10:18 PM Age: 47 years old Clinical indication: Abdominal pain; Patient HX: C/O periumbilical pain; Additional info: Abd pain, periumbical and suprapubic TECHNIQUE: Imaging protocol: Computed tomography of the abdomen and pelvis with contrast. Radiation optimization: All CT scans at this facility use at least one of these dose optimization techniques: automated exposure control; mA and/or kV adjustment per patient size (includes targeted exams where dose is matched to clinical indication); or iterative reconstruction. Contrast material: OMNI 350; Contrast volume: 100 ml; Contrast route: INTRAVENOUS (IV); REPORTING DATA: Count of CT and Cardiac NM exams in prior 12 months: This patient has received 0 known CTs and 0 known cardiac nuclear medicine studies in the 12 months prior to the current study. COMPARISON: CT abdomen pelvis w con* [id number] 01/31/2021 9:14 PM RADIATION DOSE METRICS: Total DLP (mGy-cm): 489.9 FINDINGS: Liver: Hepatic steatosis. Gallbladder and bile ducts: Normal. No calcified stones. No ductal dilation. Pancreas: Normal. No ductal dilation. Spleen: Normal. No splenomegaly. Adrenal glands: Normal. No mass. Kidneys and ureters: Heterogeneous appearance of the kidneys may be due to bolus timing, please correlate for pyelonephritis. Stomach and bowel: Prominent fluid in the small bowel without dilation may reflect an enteritis. Diverticulosis without diverticulitis. Appendix: Appendix is mildly dilated to 8.7 mm with possible minimal surrounding edema, however, demonstrates air in the tip, findings are not definitive for appendicitis by CT alone, please closely correlate clinically. Intraperitoneal space: Unremarkable. No free air. No significant fluid collection. Vasculature: Unremarkable. No abdominal aortic aneurysm. Lymph nodes: Unremarkable. No enlarged lymph nodes. Urinary bladder: Unremarkable as visualized. Reproductive: Unremarkable as visualized. Bones/joints: Unremarkable. No acute fracture. Soft tissues: Unremarkable. CT/CT abdomen pelvis w con* [id number] IMPRESSION: 1. Appendix is mildly dilated to 8.7 mm with possible minimal surrounding edema, however, demonstrates air in the tip, findings are not definitive for appendicitis by CT alone, please closely correlate clinically. 2. Hepatic steatosis. 3. Heterogeneous appearance of the kidneys may be due to bolus timing, please correlate for pyelonephritis. 4. Prominent fluid in the small bowel without dilation may reflect an enteritis. 5. Diverticulosis without diverticulitis.
[2023-03-30] MEDS: iohexol 350 mg/mL 500 mL Btl (per mL) IV (22:19)
[2023-03-30 22:37] VITALS: BP 164/99; PULSE 94; RESP 16; O2SAT 96
[2023-03-30] MEDS: metroNIDAZOLE IV 500 MG/100 ML PREMIX 100 MG IV (23:42)
[2023-03-31] VITALS (7 sets, daily range): BP systolic 144–164; BP diastolic 83–110; PULSE 71–94; RESP 12–18; TEMP 36.4–36.9; O2SAT 96–100
[2023-03-31] MEDS: aluminum-mag hydrox-simethicon 30 ML, sucralfate oral liq 1 GM PO (00:22)
--- NOTE | 2023-03-31 00:32 | PM.HP ---
Providers/Chief Complaint Admitting Physician: Jasvir Dolan MD Chief Complaint: abd pain History of Present Illness Bennett Barraza is a 47 year old male with a past medical history significant for nephrolithiasis who presents to the emergency department with abdominal pains. He reports symptoms started today. He describes the pain as bilateral lower quadrant. He reports that sharp in nature. He reports it severe in intensity. He denies pain being affected by eating. Reports a normal bowel movement this morning. Denies fevers. Reports chills. Denies other new complaints. In the ED, patient was found to have leukocytosis. CT abdomen pelvis revealed a mildly abnormal appendix as well as evidence for small bowel enteritis. He was started on antibiotics. Review of Systems Narrative: A complete review of systems was obtained and is negative except as stated in HPI. Medications/Allergies Home Medications Medication Instructions Recorded Confirmed Last Taken Type No Known Home Medications 05/01/21 05/30/21 Unknown History Allergies Allergy/AdvReac Type Severity Reaction Status Date / Time No Known Allergies Allergy Verified 03/30/23 19:26 PFSH Acute PFSH: Medical History Right ureteral stone Surgical History History of surgery on arm Family History Father , at age 44 Hepatitis C Cirrhosis of liver Social History Alcohol intake: current Alcohol intake frequency: few times a week Substance/Drug Use: current Substance/Drug use frequency: daily Marital status: Current occupational status: disabled Vitals/I&O/Wt Last Vital Signs Temp 97.5 F L 03/31/23 00:21 Pulse 94 03/31/23 00:21 Resp 16 03/31/23 00:21 BP 164/99 03/31/23 00:21 Pulse Ox 96 03/31/23 00:21 O2 Del Method Room Air 03/30/23 19:26 Weight last 48 hrs Weight 81.647 kg Physical Exam Narrative: General: Patient is awake. Appears uncomfortable. Head: Normocephalic. Atraumatic. EOM intact. Neck: No JVD. Cardiovascular: RRR. No gallops. No murmurs. Lungs: Clear to auscultation, no use of accessory muscles, no crackles or wheezes. Skin: No jaundice. No rashes. Abdomen: Normal bowel sounds, abdomen soft and tender to palpation in lower quadrants Extremities: No cyanosis or clubbing. Musculoskeletal: No swollen or erythematous joints. Neurological: Moves all 4 extremities. No myoclonus. Data 03/30/23 21:00 03/30/23 21:00 A&P Assessment and plan (1) Abdominal pain: CT imaging reviewed, mildly abnormal appendix General surgery consulted by ED provider, appreciate recommendations Patient started on Cipro/Flagyl, will continue for now Antiemetics as needed Analgesics as needed IV fluids Serial abdominal exams N.p.o. pending surgery evaluation Plan DVT prophylaxis: Low risk CODE STATUS: Full code Attestations Medical Necessity Statement*: Expected hospitalization not to cross 2 midnights. Coding Level of Care Code Acute Code for [facility] Fwd Diagnoses Abdominal pain R10.9
[2023-03-31] MEDS: ciprofloxacin 400 MG/200 ML PREMIX 200 MG IV (00:33)
[2023-03-31] MEDS: ketorolac 10 mg Tablet PO ×3 (01:36→23:21)
[2023-03-31] MEDS: dextrose 5%-sod chloride 0.9% 1,000 ML 75 ML IV ×2 (01:37→23:11)
[2023-03-31 03:30] LABS: Basophils % 0.2 %; Eosinophils # 0.3 10^3/uL (0.0-0.8); Eosinophils % 1.8 %; Hematocrit 48.8 % (42.0-52.0); Hemoglobin 16.1 g/dL (11.7-16.6); Lymphocytes # 3.2 10^3/uL (0.8-4.8); Lymphocytes % 19.3 %; Mean Corpuscular Hemoglobin 31.6 pg (28.0-34.0); Mean Corpuscular Volume 95.7 fl (80-94); Mean Platelet Volume 10.7 fL (7.4-10.4); Monocytes # 1.3 10^3/uL (0.2-0.9); Neutrophils # 11.79 10^3/uL (1.8-7.7); Neutrophils % 70.3 %; Nucleated Red Blood Cells % 0 %; Platelet Count 305 10^3/cmm (130-400); White Blood Count 16.8 10^3/uL (4.0-10.0)
[2023-03-31 03:52] LABS: Alanine Aminotransferase 21 U/L (0-41); Albumin Level 4.3 g/dL (3.5-5.2); Alkaline Phosphatase 138 U/L (40-130); Anion Gap 16.2 (5-19); Aspartate Amino Transferase 22 U/L (0-40); Blood Urea Nitrogen 22 mg/dL (6-20); Calcium 9.6 mg/dL (8.5-10.5); Carbon Dioxide 25 mmol/L (22-29); Chloride 98 mmol/L (98-107); Creatinine Clr Calc Pharmacy 110.5119; Globulin 2.6 g/dL (1.3-4.6); Glomerular Filtration Rate 90.1 mL/min (90-130); Glucose 127 mg/dL (65-115); Osmolality Calculated 285 mOsm/kg (285-295); Potassium 4.2 mmol/L (3.5-5.1); Procalcitonin 0.36 ng/mL (0-0.5); Sodium 135 mmol/L (136-145); Total Bilirubin 0.8 mg/dL (0.15-1.2); Total Protein 6.9 g/dL (6.6-8.7)
[2023-03-31] MEDS: piperacillin-tazobactam 3.375 GM in sodium chloride 0.9% (plus) 50 ML IV ×3 (06:54→23:11)
--- NOTE | 2023-03-31 07:46 | P.CONIM_ITS ---
Providers/Reason For Consult Consulting Physician/Specialty*: General surgery Reason for Consult*: Abdominal pain Attending Physician: Jasvir Dolan MD History of Present Illness History of Present Illness Bennett Barraza is a 47 year old male who presents with 12 hours of abdominal pain, located in the lower abdomen. Pain is not associated with nausea, vomiting or changes in the bowel habits. White count elevated to 18,000. CT scan done in the emergency department show evidence of a mildly dilated appendix with air inside, there is also evidence of fluid stasis in the bowel loops which may be consistent with enteritis. patient was admitted for observation I was consulted for evaluation for possible acute appendicitis. Review of Systems Narrative: 10 point review of systems was done and is negative otherwise noted in HPI General: No constitutional symptoms Respiratory: No respiratory symptoms Cardiovascular: No tachycardia palpitations Abdomen: Abdominal pain. Medications/Allergies Home Medications Medication Instructions Recorded Confirmed Last Taken Type No Known Home Medications 05/01/21 03/31/23 Unknown History Allergies Allergy/AdvReac Type Severity Reaction Status Date / Time ciprofloxacin Allergy ADR-Itching Verified 03/31/23 01:19 Current Medications Generic Name Dose Route Start Last Admin Trade Name Freq PRN Reason Stop Dose Admin Dextrose/Sodium Chloride 1,000 mls @ 75 mls/hr 03/31/23 00:45 03/31/23 01:37 Dextrose 5%-Sod Chloride 0.9% IV 75 mls/hr .[id number] MEGHANA Administration Piperacillin Sod/Tazobactam 50 mls @ 12.5 mls/hr 03/31/23 07:00 03/31/23 06:54 Sod 3.375 gm/ Sodium Chloride IV 12.5 mls/hr Q8H MEGHANA Administration Ketorolac Tromethamine 10 mg 03/31/23 00:38 03/31/23 01:36 Ketorolac 10 Mg Tablet PO 04/05/23 00:37 10 mg Q6H PRN Administration MODERATE PAIN PFSH Acute PFSH: Medical History Right ureteral stone Surgical History History of surgery on arm Family History Father , at age 44 Hepatitis C Cirrhosis of liver Social History Alcohol intake: current Alcohol intake frequency: few times a week Substance/Drug Use: current Substance/Drug use frequency: daily Marital status: Current occupational status: disabled Vitals/I&O/Wt Last Vital Signs Temp 97.9 F 03/31/23 07:32 Pulse 78 03/31/23 07:32 Resp 16 03/31/23 07:32 BP 144/91 03/31/23 07:32 Pulse Ox 97 03/31/23 07:32 O2 Del Method Room Air 03/31/23 07:32 03/30/23 03/31/23 03/31/23 22:59 06:59 14:59 Intake Total 155.000 / 155.000 Balance 155.000 / 155.000 Weight last 48 hrs Weight 180 lb Physical Exam Narrative: General : Patient is well developed , no acute distress, oriented x3 Head : Normal cephalic, a-traumatic. Nose : Mucous membranes are without erythema. Lungs : Equal chest rise bilaterally, no use of accessory muscles, trachea is m idline. CV : Rate and rhythm are normal. Abdomen : Abdomen is soft, minimally tender to palpation in the lower abdomen, McBurney negative, Rovsing negative, no rebound tenderness. Extremities : No edema. Upper extremities are normal bilaterally. Back : non-tender to palpation, no CVA tenderness. Data 03/31/23 03:06 03/31/23 03:06 A&P Assessment and plan (1) Abdominal pain: Plan 47-year-old male who was admitted to the hospital due to abdominal pain and leukocytosis, I was consulted for evaluation for possible acute appendicitis. Since admission patient's symptoms have consistently improved, his white count has decreased from 18,000-16,000. In addition I have reviewed the imaging which shows a mildly dilated appendix with no periappendiceal fat stranding and air at the tip, which represents a low likelihood for acute appendicitis as he is mainly an obstructive diverticulophaty and the finding of air in the appendix lumen virtually rules out the obstruction. No appendicolith seen. At this point, I agree with continuing nonoperative management with IV antibiotics. Patient can be advanced to clear liquid diet and then advance diet as tolerated. If in the next 24 hours we see worsening of the symptoms or an uptrend of the white count I will offer a diagnostic laparoscopy with possible laparoscopic appendectomy. ? No acute surgical intervention indicated ? Please continue IV antibiotics ? Can be advanced to clears today and then advance as tolerated ? In the case of persistent or worsening pain or uptrend in the white count I will offer diagnostic laparoscopy ?All other management by primary team, general surgery remains available for any questions. Coding Level of Care Code 62443 Diagnoses Abdominal pain R10.9
[2023-03-31] MEDS: nicotine 21 mg Patch 1 PATCH TRANSDERMA (09:40)
[2023-03-31] MEDS: calcium carbonate 500 mg Chew Tablet PO ×2 (11:36→20:32)
--- NOTE | 2023-03-31 14:43 | PM.MISC ---
Miscellaneous Note Purpose of Documentation: Patient update Note: I evaluated patient at the bedside this afternoon, he had diet and tolerated well. Pain has improved, abdominal examination is benign but he is still shows some tenderness in the suprapubic region. I have informed the patient that we will continue to monitor his white count and symptoms, if there is persistent of pain or increase in the white count by tomorrow I will offer a diagnostic laparoscopy with possible laparoscopic appendectomy. Patient agrees with the plan.
--- NOTE | 2023-03-31 14:58 | PM.PN ---
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 No vomiting, no stool changes. Requesting for more ice chips. Vitals/I&O/Wt Last Vital Signs Temp 98.4 F 03/31/23 12:00 Pulse 76 03/31/23 12:00 Resp 17 03/31/23 12:00 BP 164/83 03/31/23 12:00 Pulse Ox 99 03/31/23 12:00 O2 Del Method Room Air 03/31/23 12:00 03/30/23 03/31/23 03/31/23 22:59 06:59 14:59 Intake Total 155.000 / 155.000 530 / 530 Balance 155.000 / 155.000 530 / 530 Weight last 48 hrs Weight 81.647 kg Physical Exam Const: COMMON NORMALS: patient oriented x3 and alert GENERAL APPEARANCE: cooperative ORIENTATION/CONSCIOUSNESS: Yes awake HENMT: COMMON NORMALS: oropharynx normal Neck/C-Spine: COMMON NORMALS: no JVD Resp: COMMON NORMALS: normal respiratory effort and clear to auscultation bilaterally AUSCULTATION: clear to auscultation bilaterally Cardio: COMMON NORMALS: no JVD, regular rhythm, S1 normal heart sound present, S2 normal heart sound present and No murmurs present (Cardio) RHYTHM: regular rhythm HEART SOUNDS: S1 normal heart sound present and S2 normal heart sound present GI: COMMON NORMALS: Normal to inspection, nondistended, normoactive bowel sounds present and Soft to palpation PALPATION: Yes Soft to palpation and Yes Tenderness to palpation present (GI) Details: RLQ OTHER: Mcqueen neg Extremity: COMMON NORMALS: no joint enlargement and no pedal edema Neuro: COMMON NORMALS: patient oriented x3 and moves all extremities SENSORIUM/ORIENTATION: Yes alert Skin: COMMON NORMALS: no rashes or lesions noted GENERAL SKIN EXAM: no rashes or lesions noted Data 03/31/23 03:06 03/31/23 03:06 A&P Assessment and plan (1) Abdominal pain: Still having tenderness in right lower quadrant, 16.8, predominantly neutrophilic 11.79. Afebrile. Surgery continues to reassess with regards to possible appendicitis. Continue empiric antibiotic with Zosyn. Continue to monitor. Surgery documentation appreciated. Reassess condition and blood counts, further determination of need for surgical intervention with exploratory laparoscopy. N.p.o., diet advanced per surgery. Continue gentle IV hydration. Required a dose of IV Toradol. At risk of severe/life-threatening deterioration in case of progression to sepsis. Continue monitoring and treatment in the hospital. Plan Abnormal UA: Possible UTI, 5-tell WBC, 3+ bacteria. Negative nitrates. 0-4 hyaline cast. Requesting urine culture. On Zosyn as above. Heterogenous appearance of the kidneys, possibly due to bolus timing on contrast CT. Correlate for pyelonephritis. Dyspepsia: Requested Tums, added. Prominent fluid in the small bowel, possible enteritis Incidentally noted hepatic steatosis: Should follow-up with PCP Diverticulosis Smoking addiction: Add nicotine patch. Discussed with nursing, case management. Attestations Medical Necessity Statement*: Continue hospitalization for assessment management of abdominal pain with leukocytosis, possible appendicitis, possible UTI, risk of progression of infection, sepsis. Diagnoses Abdominal pain R10.9
[2023-04-01] VITALS: BP 131/78; PULSE 106; RESP 17; TEMP 36.3; O2SAT 99
[2023-04-01 04:00] VITALS: BP 150/96; PULSE 66; RESP 17; TEMP 36.8; O2SAT 98
[2023-04-01 05:22] LABS: Basophils # 0.1 10^3/uL (0.0-0.1); Basophils % 0.7 %; Eosinophils # 0.6 10^3/uL (0.0-0.8); Eosinophils % 6.4 %; Hematocrit 45.4 % (42.0-52.0); Hemoglobin 14.9 g/dL (11.7-16.6); Lymphocytes # 3.3 10^3/uL (0.8-4.8); Lymphocytes % 36.5 %; Mean Corpuscular HGB Conc 32.8 g/dL (30.0-36.0); Mean Corpuscular Hemoglobin 31.2 pg (28.0-34.0); Mean Platelet Volume 10.7 fL (7.4-10.4); Monocytes # 0.8 10^3/uL (0.2-0.9); Monocytes % 9.3 %; Neutrophils # 4.18 10^3/uL (1.8-7.7); Neutrophils % 46.9 %; Nucleated Red Blood Cells % 0 %; Platelet Count 274 10^3/cmm (130-400); Red Blood Count 4.78 10^6/uL (4.1-5.3); White Blood Count 8.9 10^3/uL (4.0-10.0)
[2023-04-01 05:45] LABS: Anion Gap 11.1 (5-19); Blood Urea Nitrogen 16 mg/dL (6-20); Calcium 8.9 mg/dL (8.5-10.5); Carbon Dioxide 25 mmol/L (22-29); Chloride 106 mmol/L (98-107); Glomerular Filtration Rate 103.2 mL/min (90-130); Glucose 117 mg/dL (65-115); Osmolality Calculated 288 mOsm/kg (285-295); Potassium 4.1 mmol/L (3.5-5.1); Sodium 138 mmol/L (136-145)
[2023-04-01] MEDS: piperacillin-tazobactam 3.375 GM in sodium chloride 0.9% (plus) 50 ML IV (06:12)
--- NOTE | 2023-04-01 07:42 | PM.PN ---
Subjective Subjective: I evaluated patient this morning, he is doing well, abdominal pain has resolved he is passing gas and stool. Laboratory work-up shows normal white count. Vitals/I&O/Wt Last Vital Signs Temp 98.3 F 04/01/23 04:00 Pulse 66 04/01/23 04:00 Resp 17 04/01/23 04:00 BP 150/96 04/01/23 04:00 Pulse Ox 98 04/01/23 04:00 O2 Del Method Room Air 04/01/23 04:00 03/31/23 04/01/23 04/01/23 22:59 06:59 14:59 Intake Total 770 / 2300 50 / 2350 Balance 770 / 2300 50 / 2350 Weight last 48 hrs Weight 180 lb Physical Exam Narrative: Abdomen: Soft, nontender, nondistended. Data 04/01/23 05:09 04/01/23 05:09 A&P Assessment and plan (1) Abdominal pain: Plan 47-year-old male admitted with abdominal pain, I was consulted for evaluation of possible acute appendicitis, clinical picture not 100% consistent with acute appendicitis, therefore we proceeded with nonoperative management with antibiotics. Abdominal pain has resolved, white count has returned to normal, patient doing well. Patient cleared for discharge from the general surgery standpoint, he should be discharged with at least 4 more days of antibiotics. He can follow-up as needed in my clinic, warning signs have been given and he will return to the ED in case of recurrent abdominal pain. ? Cleared for discharge from the general surgery standpoint ? Please provide 4 more days of antibiotic therapy as outpatient ? All other care per hospitalist team Attestations Medical Necessity Statement*: Patient cleared for discharge from the general surgery standpoint Coding Level of Care Code Acute Code for [facility] Fwd Diagnoses Abdominal pain R10.9
[2023-04-01] MEDS: nicotine 21 mg Patch 1 PATCH TRANSDERMA (08:49)
--- NOTE | 2023-04-01 09:49 | PC.CHAP ---
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 [] Patient/Family/Request visit [] Outpatient visit [] Follow-up visit [] Physician referral [] Code/Alert [] Routine visit [] Staff referral [] Actively dying [x] Patient sleeping [] Family support [] [] Out of room [] Palliative care [] [] Receiving care in room [] Pre-surgical visit [] Trauma [] Long length of stay [] ICU visit [] Other: Relational/Emotional Strength [] Patient feels connected with others/family/visitors/staff [] Distress [] Loneliness/isolation [] Abandonment Spirituality of Patient [] Person of Ara [] Attends Temple of their Ara [] Believes in Prayer [] Reads Bible or Methodist materials [] There are Spiritual issues to be addressed 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 Interventions [] Prayer [] Active listening [] Non-anxious presence [] Spiritual/emotional support [] Crisis/trauma care [] Spiritual counseling [] Bereavement support [] Provided bereavement packet [] Provided Bible/devotional materials [] Provided toy/stuffed animal, coloring book to patient or family member [] Provided Communion [] Anointing/[place] [] Salvation [] Completed spiritual assessment [] Other: Impact on Illness or Injury [] Angry [] Fearful [] Anxious [] Often cries [] Exhaustion [] Unable to work [] Unable to attend gnosticist [] Unable to walk/stand [] Unable to read [] Unable to drive [] Unable to eat/drink [] Unable to sleep [] Unable to be with family [] Patient intubated [] Other: Summary Time spent with patient
[2023-04-01 10:18] VITALS: BP 128/76; PULSE 96; RESP 18; TEMP 36.6; O2SAT 96
[2023-04-01 11:14] VITALS: BP 164/90; PULSE 86; RESP 18; TEMP 36.8; O2SAT 98
--- NOTE | 2023-04-01 13:27 | PM.DCS ---
Discharge Providers Date of Admission: 03/30/23 23:51 Date of Discharge: April 01, 2023 Attending Provider at Admission: Jasvir Dolan MD Attending Provider at Discharge: Gio Berman Diagnoses at Discharge Discharge Diagnosis (1) Abdominal pain: Status: Acute Reason for Visit Reason for Visit: abd pain Hospital Course Hospital Course Pleasant 47-year-old gentleman with a history of ureterolithiasis, was admitted for assessment management after presenting with abdominal pain and right lower quadrant, with leukocytosis and presentation 19,000, CT scan with mildly dilated appendix with air inside, evidence of fluid states in the bowel, enteritis, also with heterogenous appearing kidneys, consideration of pyelonephritis. UA on presentation with only 5-10 WBC, 3+ bacteria, with negative nitrate. General surgery was consulted, he was treated with empiric antibiotic coverage with Zosyn, bowel rest, IV hydration. Pain and nausea management. On surgical evaluation he was not presenting typically for appendicitis, and they managed him conservatively with reassessment. He was found to be improving, tolerating oral intake with trial of diet, noted remaining afebrile, leukocytosis also has resolved. He symptoms have improved, pain and tenderness in right lower quadrant resolving. He is cleared for discharge by surgery with request for continuation of antibiotic course. Please reassess for continued improvement. He is asked to follow-up with surgery for further consideration of interval appendectomy versus sequential imaging given age over 40. Urine culture noted growing less than 5000 colonies mixed urogenital mirta on day 1, preliminary. Please follow-up following cultures. He does note incidentally also having some history of recurrent heartburn, and states that his mother has previously been diagnosed with H. pylori. Could not request urea breath test at discharge, please refer for additional H. pylori testing, consider endoscopic evaluation after he recovers from his acute condition given symptoms and smoking history. Continue to encourage smoking cessation. Discussed with him for 5 minutes today. He states has been quitting, has almost entirely quit smoking, still vaping but will be trying to cut out vaping as well. Physical Exam Const: COMMON NORMALS: patient oriented x3 and alert GENERAL APPEARANCE: cooperative ORIENTATION/CONSCIOUSNESS: Yes awake HENMT: COMMON NORMALS: oropharynx normal Neck/C-Spine: COMMON NORMALS: no JVD Resp: COMMON NORMALS: normal respiratory effort and clear to auscultation bilaterally AUSCULTATION: clear to auscultation bilaterally Cardio: COMMON NORMALS: no JVD, regular rhythm, S1 normal heart sound present, S2 normal heart sound present and No murmurs present (Cardio) RHYTHM: regular rhythm HEART SOUNDS: S1 normal heart sound present and S2 normal heart sound present GI: COMMON NORMALS: Normal to inspection, nondistended, normoactive bowel sounds present and Soft to palpation PALPATION: Yes Soft to palpation and Yes Other GI palpation findings present (Improved tenderness right lower quadrant.) Extremity: COMMON NORMALS: no joint enlargement and no pedal edema Neuro: COMMON NORMALS: patient oriented x3 and moves all extremities SENSORIUM/ORIENTATION: Yes alert Skin: COMMON NORMALS: no rashes or lesions noted GENERAL SKIN EXAM: no rashes or lesions noted Discharge Data Studies Completed and Pending Completed Studies During Hospitalization Category Date Time Status CT abdomen pelvis w con* [id number] Stat Cat Scan 03/30/23 22:04 Completed Pending at discharge Category Date Time Status Basic Metabolic Panel AM LABS Lab 04/02/23 04:00 Ordered Basic Metabolic Panel AM LABS Lab 04/03/23 04:00 Ordered Complete Blood Count w/Auto AM LABS Lab 04/02/23 04:00 Ordered Complete Blood Count w/Auto AM LABS Lab 04/03/23 04:00 Ordered Urine Culture Routine Lab 03/31/23 15:04 Results Radiology Impressions Abdomen/Pelvis CT 03/30/23 22:04 IMPRESSION: 1. Appendix is mildly dilated to 8.7 mm with possible minimal surrounding edema, however, demonstrates air in the tip, findings are not definitive for appendicitis by CT alone, please closely correlate clinically. 2. Hepatic steatosis. 3. Heterogeneous appearance of the kidneys may be due to bolus timing, please correlate for pyelonephritis. 4. Prominent fluid in the small bowel without dilation may reflect an enteritis. 5. Diverticulosis without diverticulitis. Laboratory Results WBC 8.9 10^3/uL (4.0-10.0) 04/01/23 05:09 RBC 4.78 10^6/uL (4.1-5.3) 04/01/23 05:09 Hgb 14.9 g/dL (11.7-16.6) 04/01/23 05:09 Hct 45.4 % (42.0-52.0) 04/01/23 05:09 MCV 95.0 fl (80-94) H 04/01/23 05:09 MCH 31.2 pg (28.0-34.0) 04/01/23 05:09 MCHC 32.8 g/dL (30.0-36.0) 04/01/23 05:09 RDW 13.0 % (12.1-15.1) 04/01/23 05:09 Plt Count 274 10^3/cmm (130-400) 04/01/23 05:09 MPV 10.7 fL (7.4-10.4) H 04/01/23 05:09 Neut % (Auto) 46.9 % 04/01/23 05:09 Lymph % (Auto) 36.5 % 04/01/23 05:09 [place] % (Auto) 9.3 % 04/01/23 05:09 Eos % (Auto) 6.4 % 04/01/23 05:09 Baso % (Auto) 0.7 % 04/01/23 05:09 Neut # (Auto) 4.18 10^3/uL (1.8-7.7) 04/01/23 05:09 Lymph # (Auto) 3.3 10^3/uL (0.8-4.8) 04/01/23 05:09 [place] # (Auto) 0.8 10^3/uL (0.2-0.9) 04/01/23 05:09 Eos # (Auto) 0.6 10^3/uL (0.0-0.8) 04/01/23 05:09 Baso # (Auto) 0.1 10^3/uL (0.0-0.1) 04/01/23 05:09 Nucleated RBC % (auto) 0 % 04/01/23 05:09 Nucleated RBCs # 0.0 /100WBC 04/01/23 05:09 Sodium 138 mmol/L (136-145) 04/01/23 05:09 Potassium 4.1 mmol/L (3.5-5.1) 04/01/23 05:09 Chloride 106 mmol/L (98-107) 04/01/23 05:09 Carbon Dioxide 25 mmol/L (22-29) 04/01/23 05:09 Anion Gap 11.1 (5-19) 04/01/23 05:09 BUN 16 mg/dL (6-20) 04/01/23 05:09 Creatinine 0.8 mg/dL (0.7-1.2) 04/01/23 05:09 GFR Calculation 103.2 mL/min (90-130) 04/01/23 05:09 Glucose 117 mg/dL (65-115) H 04/01/23 05:09 Calculated Osmolality 288 mOsm/kg (285-295) 04/01/23 05:09 Calcium 8.9 mg/dL (8.5-10.5) 04/01/23 05:09 Total Bilirubin 0.8 mg/dL (0.15-1.2) 03/31/23 03:06 AST 22 U/L (0-40) 03/31/23 03:06 ALT 21 U/L (0-41) 03/31/23 03:06 Alkaline Phosphatase 138 U/L (40-130) H 03/31/23 03:06 Total Protein 6.9 g/dL (6.6-8.7) 03/31/23 03:06 Albumin 4.3 g/dL (3.5-5.2) 03/31/23 03:06 Globulin 2.6 g/dL (1.3-4.6) 03/31/23 03:06 Lipase 18 U/L (13-60) 03/30/23 21:00 Procalcitonin 0.36 ng/mL (0-0.5) 03/31/23 03:06 Urine Color Yellow (Yellow) 03/30/23 21:43 Urine Appearance Hazy (CLEAR) A 03/30/23 21:43 Urine pH 6 (5-7) 03/30/23 21:43 Ur Specific [place] 1.020 (1.005-1.030) 03/30/23 21:43 Urine Protein Trace (Negative) 03/30/23 21:43 Urine Glucose (UA) 1+ (Normal) H 03/30/23 21:43 Urine Ketones Negative (Negative) 03/30/23 21:43 Urine Blood Neg (Negative) 03/30/23 21:43 Urine Nitrate Negative (Negative) 03/30/23 21:43 Urine Bilirubin Neg (Negative) 03/30/23 21:43 Urine Urobilinogen Norm mg/dL (Negative) 03/30/23 21:43 Ur Leukocyte Esterase Trace (Negative) H 03/30/23 21:43 Urine RBC 0-4 /hpf (0-2) H 03/30/23 21:43 Urine WBC 5-10 /hpf (0-5) H 03/30/23 21:43 Ur Squamous Epith Cells 0-4 /hpf (0-5) H 03/30/23 21:43 Amorphous Sediment Not Reportable 03/30/23 21:43 Urine Bacteria 3+ /hpf (NONE) H 03/30/23 21:43 Hyaline Casts 0-4 /lpf H 03/30/23 21:43 Vitals Last Vital Signs Temp 98.3 F 04/01/23 11:14 Pulse 86 04/01/23 11:14 Resp 18 04/01/23 11:14 BP 164/90 04/01/23 11:14 Pulse Ox 98 04/01/23 11:14 O2 Del Method Room Air 04/01/23 11:14 Discharge Plan Discharge Patient Disposition: Home Condition: Stable Prescriptions: New pantoprazole 40 mg tablet,delayed release (DR/EC) 40 mg PO DAILY 42 Days Qty: 42 0RF cefdinir 300 mg capsule 300 mg PO BID 7 Days Qty: 14 0RF metronidazole 500 mg tablet 500 mg PO Q8H 7 Days Qty: 21 0RF No Action No Known Home Medications Discharge Orders: Discharge Order (Routine); Ordered 04/01/23 Ordered By: Gio Berman Referrals: Eric Moreira MD [Physician] - 2 weeks (Clinic will call with appointment.) Abel Walker MD [Physician] - 04/04/23 9:00 am Patient Instructions: Metronidazole (By mouth), Cefdinir (By mouth), Pantoprazole (By mouth), Abdominal Pain (ED), Opioid Safety Activity Restrictions/Additional Instructions: Please follow-up with your primary doctor for reassessment after episode of focal colitis, possible appendicitis, complete antibiotic course. Seek medical attention immediately in case of worsening or new concerning symptoms, abdominal pain, bloody or dark black stools, inability to tolerate oral intake, high fever or other. Follow-up with the surgery to consider interval appendectomy or sequential imaging due to age over 40. Urea breath test for H. pylori as requested could not be ordered from here. Please follow-up with your primary doctor for referral for urea breath test as well as assessment of dyspepsia with history of smoking due to elevated risk of gastric cancer. Please keep up the good work on stopping smoking. Please follow-up with your primary doctor for reassessment of fatty liver infiltration. Avoid alcohol. Maintain low-cholesterol diet. Please follow-up with your primary doctor for reassessment of heterogenous appearance of kidneys on imaging, lower possibility of mild kidney infection. Complete antibiotic course. Avoid any NSAIDs like ibuprofen, Aleve, etc. Discharge Attestations Time Spent in Discharge Care*: greater than 30 min Quality Metrics Clinical Quality Measures [ No reported AMI, CVA or VTE this stay] Coding Level of Care Code 77648 Total time (in minutes) for Discharge: 45 Diagnoses Abdominal pain R10.9
--- NOTE | 2023-04-01 13:35 | PC.NURSE ---
IV removed intact. Patient tolerated well. Patient is alert and orientated x3. Respirations even and non-labored on room air. Reviewed patient's discharge instructions with patient who verbalized understanding of follow up appointments and medications. Patient ambulated to private car.
[2023-04-01 13:40] VITALS: BP 164/90; PULSE 86; RESP 18; TEMP 36.8; O2SAT 98
== END 2023-04-01 13:50 | disposition home or self-care (01) ==
LOC: ER 23:33 → MEDSURG 23:52
PROVIDERS: Admitting Provider Internal Medicine; Emergency Provider Emergency Medicine; Visit Provider Internal Medicine
DX: R10.9 Unspecified abdominal pain (principal); K57.90 Diverticulosis of intestine, part unspecified, without perforation or abscess without bleeding; R12 Heartburn; D72.829 Elevated white blood cell count, unspecified; F17.200 Nicotine dependence, unspecified, uncomplicated
CPT/HCPCS: 12345; 36415; 74177; 80048; 80053; 81001; 83690; 84145; 85025; 87086; 96365; 96375; 96376; 99253; 99285; G0378; J0744; J1885; J2270; J2405; J2543; J3490; J7042; Q9967

== ENCOUNTER 2023-09-27 20:10 | Emergency (ER) | payer BC, MEDICAID, SELFPAY ==
[2023-09-27 20:25] VITALS: BP 167/96; PULSE 100; RESP 18; TEMP 36.6; O2SAT 99; BMI 27.9
[2023-09-27 21:44] VITALS: BP 156/101; PULSE 91; RESP 18; O2SAT 99
--- NOTE | 2023-09-27 21:48 | XRR_ITS ---
PROCEDURE INFORMATION: Exam: XR Chest Exam date and time: 09/27/2023 10:03 PM Age: 48 years old Clinical indication: Chest wall pain; Patient HX: Chest pain TECHNIQUE: Imaging protocol: Radiologic exam of the chest. Views: 1 view. COMPARISON: CT abdomen pelvis w con* [id number] 03/30/2023 10:18 PM FINDINGS: Lungs: Unremarkable. No consolidation. Pleural spaces: Unremarkable. No pleural effusion. No pneumothorax. Heart/Mediastinum: Unremarkable. No cardiomegaly. Bones/joints: Unremarkable. XR/XR chest 1V [id number] IMPRESSION: No acute findings.
--- NOTE | 2023-09-27 21:54 | W.ED.HA ---
HPI - Headache General: Chief Complaint: Headache Stated Complaint: Abd pain Time Seen by Provider: 09/27/23 21:47 Source: patient and family Mode of arrival: ambulatory Limitations: no limitations History of Present Illness: Patient presents emergency department today for evaluation treatment of multiple nonspecific complaints. Patient reports he has had issues with controlling his blood pressure now for almost a year. He had been on blood pressure medication but admits that he stopped it for quite some time. He began having issues with his blood pressure and started back on his medications. He was seen by his doctor here recently about his blood pressure. He has an upcoming appointment in 3 months. Patient reports episodes of headache but clarifies that it is more of a sharp pain and ringing sensation. He also states that his stomach feels like it is fluttering but does not cause him to vomit or have diarrhea. He is still able to eat and drink. He does not notice the sensation correlating with eating or drinking. It does not lead him to have to use the restroom. Patient also reports a history of lipomas. He states he has surgery to remove other growths in November but is concerned as he has 1 that is sore on his neck. Patient denies any fevers. He is denying any significant upper respiratory symptoms of cough. He mentions issues with chest heaviness as well. Review of Systems General: Reports: 10 or more systems reviewed and unremarkable except in HPI and below PFSH ED PFSH: Medical History (Updated 09/27/23 @ 23:47 by KIKI David) GERD (gastroesophageal reflux disease) Hypertension Carpal tunnel syndrome on both sides H/O fracture of tibia surgery Lipoma excised from back Urolithiasis Rt ureter 06/2021 Surgical History History of surgery on arm Family History Father , at age 44 Hepatitis C Cirrhosis of liver Social History Alcohol intake: current Alcohol intake frequency: few times a week Substance/Drug Use: current Substance/Drug use frequency: daily Marital status: Current occupational status: disabled Physical Exam Const: COMMON NORMALS: no acute distress, patient oriented x3 and alert OTHER: Patient is pleasant, social. Answers his own history. Vital signs are stable. HENMT: COMMON NORMALS: normocephalic, atraumatic, hearing grossly normal bilaterally and moist oral mucous membranes HEAD & SCALP: normocephalic and atraumatic Eye: COMMON NORMALS: Equal, round and reactive pupils present, EOMs intact bilaterally and conjunctivae normal CONJUNCTIVA: Yes conjunctivae normal PUPIL: Yes Equal, round and reactive pupils present Neck/C-Spine: COMMON NORMALS: full ROM and no JVD OTHER: Patient has tenderness at the base of the right lateral neck at the top of the shoulder on palpation. Patient indicates he has a deep lipoma in this area Lymph: LYMPHATIC: no lymphadenopathy noted Resp: COMMON NORMALS: normal respiratory effort, No retractions, No use of accessory muscles and clear to auscultation bilaterally AUSCULTATION: clear to auscultation bilaterally Cardio: COMMON NORMALS: no JVD, regular rate and regular rhythm RATE: regular rate RHYTHM: regular rhythm GI: OTHER: Abdomen is soft. Nontender to palpation. Normoactive bowel sounds. : COMMON NORMALS: Yes no CVA tenderness BLADDER/KIDNEY EXAM: Yes no CVA tenderness Back/Pelvis: COMMON NORMALS: no CVA tenderness, no thoracic nor lumbar tenderness and thoraco-lumbar ROM normal Extremity: OTHER: Patient using all extremities. Ambulatory and weightbearing in the ER. Patient with chronic decreased range of motion of the right hand, fingers, and forearm. Large scar at the length of his forearm present from previous surgery. Neuro: COMMON NORMALS: patient oriented x3 SENSORIUM/ORIENTATION: Yes alert Psych: COMMON NORMALS: mental status grossly normal, Normal thought process present, cooperative, normal affect and activity/motor behavior normal THOUGHT PROCESS: Normal thought process present Skin: COMMON NORMALS: no rashes or lesions noted and no wounds GENERAL SKIN EXAM: no rashes or lesions noted Course Vital Signs: Vital signs: Vital Signs Temperature 98 F 09/27/23 20:25 Pulse Rate 88 09/27/23 23:59 Respiratory Rate 18 09/27/23 23:09 Blood Pressure 165/94 09/27/23 23:59 Pulse Oximetry 100 09/27/23 23:59 Oxygen Delivery Me thod Room Air 09/27/23 23:09 MDM - Headache Medical Decision Making Patient had several vague complaints however, they could be related to issues regarding his heart or acute hypertension. We did do a full cardiac examination including troponins, chest x-ray, and EKG. These were all normal. Patient was negative for signs of infection or anemia. His electrolytes were all within normal limits as well as his GFR and creatinine. Urinalysis revealed no acute concerns. Patient's flu and COVID are negative. Thyroid testing is normal as well. Explained to them that while we do not find any acute issues today, we were able to rule out some significant concerns on his exam. As he is concerned about acute elevations in his blood pressure I will try a prescription of hydroxyzine to take for acute elevated blood pressure. Patient also has a component of anxiety which he admits to having which hydroxyzine can help with as well. Patient has an appointment with his primary care doctor in a couple months but I did request he call to request a sooner appointment for follow-up on his evaluation here in the ER [facility]. However, I did request he be seen and reevaluated here in the emergency department for any acute worsening in symptoms. Patient verbalizes understanding and agreement to treatment plan. Differential Diagnosis Likely headache; Unlikely migraine, tension headache, subarachnoid hemorrhage, meningitis, sinusitis or postconcussion syndrome Lab Data 09/27/23 21:41 09/27/23 21:41 Radiology Impressions Chest X-Ray 09/27/23 21:48 IMPRESSION: No acute findings. Laboratory Results WBC 10.42 10^3/uL (3.29-11.43) 09/27/23 21:41 RBC 5.07 10^6/uL (3.85-5.65) 09/27/23 21:41 Hgb 16.00 g/dL (11.27-16.99) 09/27/23 21:41 Hct 48.5 % (37-53) 09/27/23 21:41 MCV 95.7 fl (82-101) 09/27/23 21:41 MCH 31.6 pg (27-33) 09/27/23 21:41 MCHC 33.0 g/dL (30-55) 09/27/23 21:41 RDW 13.1 % (12.1-15.1) 09/27/23 21:41 Plt Count 316 10^3/cmm (157-399) 09/27/23 21:41 MPV 10.7 fL (7.4-10.4) H 09/27/23 21:41 Neut % (Auto) 51.3 % 09/27/23 21:41 Lymph % (Auto) 34.0 % 09/27/23 21:41 [place] % (Auto) 8.4 % 09/27/23 21:41 Eos % (Auto) 5.4 % 09/27/23 21:41 Baso % (Auto) 0.8 % 09/27/23 21:41 Neut # (Auto) 5.35 10^3/uL (1.8-7.7) 09/27/23 21:41 Lymph # (Auto) 3.5 10^3/uL (0.8-4.8) 09/27/23 21:41 [place] # (Auto) 0.9 10^3/uL (0.2-0.9) 09/27/23 21:41 Eos # (Auto) 0.6 10^3/uL (0.0-0.8) 09/27/23 21:41 Baso # (Auto) 0.1 10^3/uL (0.0-0.1) 09/27/23 21:41 Nucleated RBC % (auto) 0 % 09/27/23 21:41 Nucleated RBCs # 0.0 /100WBC 09/27/23 21:41 Sodium 138 mmol/L (136-145) 09/27/23 21:41 Potassium 4.0 mmol/L (3.5-5.1) 09/27/23 21:41 Chloride 101 mmol/L (98-107) 09/27/23 21:41 Carbon Dioxide 27 mmol/L (22-29) 09/27/23 21:41 Anion Gap 14.0 (5-19) 09/27/23 21:41 BUN 17 mg/dL (6-20) 09/27/23 21:41 Creatinine 0.8 mg/dL (0.7-1.2) 09/27/23 21:41 GFR Calculation 102.7 mL/min (90-130) 09/27/23 21:41 Glucose 109 mg/dL (65-115) 09/27/23 21:41 Calculated Osmolality 288 mOsm/kg (285-295) 09/27/23 21:41 Calcium 9.9 mg/dL (8.5-10.5) 09/27/23 21:41 Total Bilirubin 0.4 mg/dL (0.15-1.2) 09/27/23 21:41 AST 31 U/L (0-40) 09/27/23 21:41 ALT 34 U/L (0-41) 09/27/23 21:41 Alkaline Phosphatase 122 U/L (40-130) 09/27/23 21:41 Troponin T Baseline < 6 ng/L (0-15) 09/27/23 21:41 Total Protein 7.4 g/dL (6.6-8.7) 09/27/23 21:41 Albumin 4.3 g/dL (3.5-5.2) 09/27/23 21:41 Globulin 3.1 g/dL (1.3-4.6) 09/27/23 21:41 Lipase 30 U/L (13-60) 09/27/23 21:41 TSH 1.40 uIU/mL (0.27-4.20) 09/27/23 21:41 Urine Color Yellow (Yellow) 09/27/23 21:50 Urine Appearance Cloudy (CLEAR) A 09/27/23 21:50 Urine pH 8 (5-7) H 09/27/23 21:50 Ur Specific [place] 1.010 (1.005-1.030) 09/27/23 21:50 Urine Protein Neg (Negative) 09/27/23 21:50 Urine Glucose (UA) Norm (Normal) 09/27/23 21:50 Urine Ketones Negative (Negative) 09/27/23 21:50 Urine Blood Neg (Negative) 09/27/23 21:50 Urine Nitrate Negative (Negative) 09/27/23 21:50 Urine Bilirubin Neg (Negative) 09/27/23 21:50 Prot Sulfosalicylic Acd Negative (Negative) 09/27/23 21:50 Urine Urobilinogen Norm mg/dL (Negative) 09/27/23 21:50 Ur Leukocyte Esterase Negative (Negative) 09/27/23 21:50 Influenza Type A Ag negative (Negative) 09/27/23 21:50 Influenza Type B Ag negative (Negative) 09/27/23 21:50 SARS-CoV-2 Ag (Rapid) Negative (Negative) 09/27/23 21:50 All radiology interpretation(s) finalized by discharge Discharge Plan Discharge Patient Disposition: Home Clinical Impression: Headache, Hypertension Condition: Stable Prescriptions: New hydroxyzine HCl 25 mg tablet 25 mg PO TID PRN (Reason: anxiety) Qty: 21 0RF No Action lisinopril 5 mg tablet 5 mg PO DAILY Qty: 30 5RF Discharge Orders: Discharge ED (Routine); Ordered 09/27/23 Ordered By: Sherin Virgen Discharge Diet: Usual diet Discharge Activity: Increase activity as tolerated Patient Instructions: Hypertension Activity Restrictions/Additional Instructions: Based on the symptoms you are experiencing we did perform a rather in-depth evaluation for you here in the emergency department today. We did an evaluation of your heart which revealed no acute concerns for heart injury. EKG rhythms were normal. You are negative for anemia or signs of infection. You are well-hydrated and have normal electrolytes. You are flu and COVID-negative. Urinalysis shows no signs of any issues with your kidneys as your kidney function numbers are also within normal limits. Your thyroid numbers are within normal limits as well. With this otherwise negative workup I am going to provide you medication which you can take as needed for acutely elevated blood pressures or, when you become symptomatic. I do recommend making a follow-up appoint with your primary care doctor sooner than later to discuss the symptoms. However, if you develop crushing chest pains, dizziness or passing out, profuse vomiting or difficulty breathing we recommend you be seen and reevaluated. Coding Level of Care Code ED Customer Acquisition Specialist for Tray Castillo
[2023-09-27 21:56] LABS: Basophils # 0.1 10^3/uL (0.0-0.1); Basophils % 0.8 %; Eosinophils # 0.6 10^3/uL (0.0-0.8); Eosinophils % 5.4 %; Hematocrit 48.5 % (37-53); Lymphocytes # 3.5 10^3/uL (0.8-4.8); Mean Corpuscular Hemoglobin 31.6 pg (27-33); Mean Corpuscular Volume 95.7 fl (82-101); Mean Platelet Volume 10.7 fL (7.4-10.4); Monocytes # 0.9 10^3/uL (0.2-0.9); Monocytes % 8.4 %; Neutrophils # 5.35 10^3/uL (1.8-7.7); Neutrophils % 51.3 %; Nucleated Red Blood Cells % 0 %; Platelet Count 316 10^3/cmm (157-399); Red Blood Count 5.07 10^6/uL (3.85-5.65); Red Cell Distribution Width 13.1 % (12.1-15.1); White Blood Count 10.42 10^3/uL (3.29-11.43)
[2023-09-27 22:12] LABS: Troponin(5th) Baseline < 6 ng/L (0-15)
--- NOTE | 2023-09-27 22:13 | ECG_ITS ---
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 Measurements Intervals [place] Rate: 83 P: 42 IA: 137 QRS: 73 QRSD: 94 T: 55 QT: 348 QTc: 411 Interpretive Statements SINUS RHYTHM No previous ECG available for comparison Electronically Signed On 09-28-2023 21:22:50 CONSTRUCTION PROJECT ADMINISTRATOR by Juna Jean M.D. [email or web address]
[2023-09-27 22:47] VITALS: BP 168/114; PULSE 86; RESP 16; O2SAT 100
[2023-09-27 22:52] LABS: Add Urine Microscopic? NO; Charge for UA Resulting for Rev
[2023-09-27 22:59] LABS: Alanine Aminotransferase 34 U/L (0-41); Albumin Level 4.3 g/dL (3.5-5.2); Alkaline Phosphatase 122 U/L (40-130); Aspartate Amino Transferase 31 U/L (0-40); Blood Urea Nitrogen 17 mg/dL (6-20); Calcium 9.9 mg/dL (8.5-10.5); Carbon Dioxide 27 mmol/L (22-29); Chloride 101 mmol/L (98-107); Globulin 3.1 g/dL (1.3-4.6); Glomerular Filtration Rate 102.7 mL/min (90-130); Glucose 109 mg/dL (65-115); Lipase 30 U/L (13-60); Osmolality Calculated 288 mOsm/kg (285-295); Sodium 138 mmol/L (136-145); Total Bilirubin 0.4 mg/dL (0.15-1.2); Total Protein 7.4 g/dL (6.6-8.7)
[2023-09-27 23:03] LABS: Bilirubin Urine Neg (Negative); Blood Urine Neg (Negative); Glucose Urine UA Norm (Normal); Ketones Urine Negative (Negative); Leukocyte Esterase Urine Negative (Negative); Nitrate Urine Negative (Negative); Protein Urine Neg (Negative); Sulfosalicylic Acid Urine Negative (Negative); Urine Appearance Cloudy (CLEAR); Urine Color Yellow (Yellow); Urobilinogen Urine Norm (Negative); pH Urine 8 (5-7)
[2023-09-27 23:09] VITALS: BP 156/92; PULSE 83; RESP 18; O2SAT 98
[2023-09-27 23:09] LABS: Influenza A by IFA negative (Negative); Influenza B by IFA negative (Negative)
[2023-09-27 23:14] LABS: SARS Covid-2 Antigen Negative (Negative)
[2023-09-27 23:59] VITALS: BP 165/94; PULSE 88; O2SAT 100
== END 2023-09-28 00:04 | disposition home or self-care (01) ==
PROVIDERS: Emergency Provider Physician Assistant
DX: R51.9 Headache, unspecified (principal); I10 Essential (primary) hypertension; Z11.52 Encounter for screening for COVID-19
CPT/HCPCS: 71045; 80053; 81003; 83690; 84443; 84484; 85025; 87426; 87804; 93005; 99285

== ENCOUNTER 2025-07-28 19:18 | Emergency (ER) | payer BC, MEDICAID, SELFPAY ==
[2025-07-28] VITALS (7 sets, daily range): BP systolic 149–202; BP diastolic 109–121; PULSE 70–80; RESP 18–20; TEMP 36.6; O2SAT 96–100; BMI 25.8
--- NOTE | 2025-07-28 18:18 | ECG_ITS ---
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 Measurements Intervals [place] Rate: 76 P: 21 MD: 141 QRS: 69 QRSD: 98 T: 60 QT: 369 QTc: 416 Interpretive Statements SINUS RHYTHM WITH OCCASIONAL VENTRICULAR PREMATURE COMPLEXES Compared to ECG 09/27/2023 22:13:02 Ventricular premature complex(es) now present Electronically Signed On 07-30-2025 16:52:28 PUBLIC RELATIONS OFFICER by Roni Gan M.D. [email or web address]
--- NOTE | 2025-07-28 18:18 | XRR_ITS ---
PROCEDURE INFORMATION: Exam: XR Chest Exam date and time: 07/28/2025 7:31 PM Age: 50 years old Clinical indication: Pain; Chest pressure; Additional info: Chest pain TECHNIQUE: Imaging protocol: Radiologic exam of the chest. Views: 1 view. COMPARISON: CR XR chest 1V [id number] 09/27/2023 10:03 PM FINDINGS: Lungs: Unremarkable. No consolidation. Pleural spaces: Unremarkable. No pleural effusion. No pneumothorax. Heart/Mediastinum: Unremarkable. No cardiomegaly. Bones/joints: Unremarkable. XR/XR chest 1V portable [id number] IMPRESSION: No acute findings.
--- OUTSIDE RECORDS SUMMARY | 2025-07-28 19:28 | XMS_ITS | Clinical Summary ---
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 20 Tablet no 6 Active HYDROcodone-acet aminophen (NORCO) 5-325 mg tabletIndication s:Partial thickness burn of left hand, unspecified site of hand, initial encounter,Partia l thickness burn of left wrist, initial encounter Take 1 Tablet by mouth every 6 hours as needed for Pain, Moderate (you may take 1-2 tablets every six hours as needed for pain). Max Daily Amount: 4 Tablets 20 Tablet 4 Active bacitracin (BACIGUENT) 500 unit/gram OintmentIndicati ons:apply to burn daily Apply to affected area daily. 28 Gram 4 Active Social History Tobacco Use Types Packs/Day Years Used Date Smoking Tobacco: Every Day Cigarettes Smokeless Tobacco: Never Alcohol Use Standard Drinks/Week Comments Yes 0 (1 standard drink = 0.6 oz pur e alcohol) Feeling Safe Answer Date Recorded Are you in a relationship wi th someone who hurts you emotionally and/or physically? 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 Gender Identity Not on file Sexual Orientation Not on file Last Filed Vital Signs Vital Sign Reading Time Taken Comments Blood Pressure 120/77 01/28/2024 1:50 AM CDT Pulse 87 02/17/2020 5:57 AM CDT Temperature 36.6 C (97.9 F) 01/28/2024 1:50 AM CDT Respiratory Rate 16 01/28/2024 1:50 AM CDT Oxygen Saturation 96% 01/28/2024 1:50 AM CDT Inhaled Oxygen Concentration - - Weight 86.2 kg (190 lb) 01/28/2024 1:50 AM CDT Height 177.8 cm (5' 10 ) 01/28/2024 1:50 AM CDT Body Mass Index 27.26 01/28/2024 1:50 AM CDT Plan of Treatment Health Maintenance Due Date Last Done Comments DTAP/TDAP/TD VACCINES (1 - Tdap) 1993 HEPATITIS B VACCINES (1 of 3 - 19+ 3-dose series) 07/02 COLORECTAL SCREENING 2019 Colorectal Cancer Screening 2019 FIT-DNA Q 3 years 2019 FIT/FOBT Q 1 year 2019 Flex Sig/CT Colonography Q 5 years 2019 ZOSTER VACCINE (1 of 2) 2024 INFLUENZA VACCINE (#1) 2025 Insurance [employer] [place] [place] [facility]
--- NOTE | 2025-07-28 19:30 | W.ED.GENADLT ---
HPI - General Adult General: Chief complaint: Chest Pain Stated complaint: chest pain Time Seen by Provider: 07/28/25 19:20 History of Present Illness: 50-year-old male presents emergency room complaining of chest pain for the last 2 days radiates into his neck and arm. He denies any history of cardiac illness. He later admitted to snorting a drug which he thought was hydrocodone but while he was on the phone here he was told by friend there was actually methamphetamine in it. He is not currently having any chest pain he denies any fever sweats chills cough or shortness of breath Associated symptoms: Reports chest pain and palpitations; Deny dyspnea or rash Related Data Previous Rx's ?Medication ?Instructions ?Recorded lisinopril 5 mg tablet 5 mg PO DAILY #30 tabs 04/09/23 hydroxyzine HCl 25 mg tablet 25 mg PO TID PRN anxiety #21 tabs 09/27/23 Allergies Allergy/AdvReac Type Severity Reaction Status Date / Time ciprofloxacin Allergy ADR-Itching Verified 04/09/23 10:58 Review of Systems Const: Denies: fever(s) or chills Card: Reports: chest pain and palpitations; Denies: edema, swelling of feet/ankles or orthopnea Resp: Denies: dyspnea GI: Denies: abdominal pain : Denies: dysuria, urinary frequency or urinary urgency Musc: Denies: neck pain or back pain Skin/Breast: Denies: rash PFSH ED PFSH: Medical History GERD (gastroesophageal reflux disease) Hypertension Carpal tunnel syndrome on both sides H/O fracture of tibia surgery Lipoma excised from back Urolithiasis Rt ureter 06/2021 Surgical History History of surgery on arm Family History Father , at age 44 Hepatitis C Cirrhosis of liver Social History Alcohol intake: current Alcohol intake frequency: few times a week Substance/Drug Use: current Substance/Drug use frequency: daily Marital status: Current occupational status: disabled Physical Exam Const: GENERAL APPEARANCE: cooperative ORIENTATION/CONSCIOUSNESS: Yes awake, Yes oriented to person, Yes oriented to place and Yes oriented to time HENMT: COMMON NORMALS: normocephalic, atraumatic and hearing grossly normal bilaterally HEAD & SCALP: normocephalic and atraumatic Resp: COMMON NORMALS: normal respiratory effort, No retractions, No use of accessory muscles and clear to auscultation bilaterally AUSCULTATION: clear to auscultation bilaterally Cardio: COMMON NORMALS: regular rate, regular rhythm and No murmurs present (Cardio) RATE: regular rate RHYTHM: regular rhythm GI: COMMON NORMALS: Soft to palpation and No hepatosplenomegaly present AUSCULTATION: Yes normoactive bowel sounds PALPATION: Yes Soft to palpation, No Tenderness to palpation present (GI), No Guarding due to palpation present (GI) and Yes No hepatosplenomegaly present Extremity: COMMON NORMALS: normal to inspection, capillary refill normal, no clubbing, cyanosis or edema, no calf tenderness and no pedal edema Neuro: SENSORIUM/ORIENTATION: Yes oriented to person, Yes oriented to place and Yes oriented to time Skin: COMMON NORMALS: no rashes or lesions noted GENERAL SKIN EXAM: no rashes or lesions noted Course Vital Signs: Vital signs: Vital Signs Temperature 98 F 07/28/25 19:31 Pulse Rate 80 07/28/25 23:07 Respiratory Rate 18 07/28/25 23:07 Blood Pressure 175/109 07/28/25 23:07 Pulse Oximetry 97 07/28/25 23:07 Oxygen Delivery Me thod Room Air 07/28/25 19:31 MDM - General Adult Medical Decision Making Medical decision making Social determinants: History of substance abuse patient does have access to prescription medications I reviewed the patient's medical record. I reviewed the patient's current home meds Alternate historians: None Differential diagnosis acute coronary syndrome pneumonia PE congestive heart failure Lab Review: Labs reviewed troponins did not have a positive delta other labs are unremarkable Imaging: Chest x-ray no acute findings no infiltrates no pulmonary vascular congestion Assessment of risk: Level of risk: Moderate Hospitalization considerations: Considered pending workup for acute coronary syndrome Reexamination: Stable no further chest pain Assessment and plan: Ruled out acute coronary syndrome. No signs of PE chest x-ray did not show any pneumonia or pneumothorax. Will discharge patient home he is feeling better.-Follow-up with his primary care physician. Medical Records I reviewed the patient's medical records. Lab Data I reviewed the patient's lab results. 07/28/25 19:26 07/28/25 19:26 Radiology Impressions Chest X-Ray 07/28/25 18:18 IMPRESSION: No acute findings. Laboratory Results WBC 9.67 10^3/uL (3.29-11.43) 07/28/25 19: RBC 4.69 10^6/uL (3.85-5.65) 07/28/25 19: Hgb 14.60 g/dL (11.27-16.99) 07/28/25 19: Hct 44.6 % (37-53) 07/28/25 19: MCV 95.1 fl (82-101) 07/28/25 19: MCH 31.1 pg (27-33) 07/28/25 19: MCHC 32.7 g/dL (30-55) 07/28/25 19: RDW 12.9 % (12.1-15.1) 07/28/25 19: Plt Count 241 10^3/cmm (157-399) 07/28/25 19: MPV 11.0 fL (7.4-10.4) H 07/28/25 19: Neut % (Auto) 54.2 % 07/28/25 19: Lymph % (Auto) 32.3 % 07/28/25 19: [place] % (Auto) 6.8 % 07/28/25 19: Eos % (Auto) 5.8 % 07/28/25 19: Baso % (Auto) 0.7 % 07/28/25 19: Neut # (Auto) 5.24 10^3/uL (1.8-7.7) 07/28/25 19: Lymph # (Auto) 3.1 10^3/uL (0.8-4.8) 07/28/25 19: [place] # (Auto) 0.7 10^3/uL (0.2-0.9) 07/28/25 19: Eos # (Auto) 0.6 10^3/uL (0.0-0.8) 07/28/25 19: Baso # (Auto) 0.1 10^3/uL (0.0-0.1) 07/28/25 19:26 Nucleated RBC % (auto) 0 % 07/28/25 19: Nucleated RBCs # 0.0 /100WBC 07/28/25 19:26 Sodium 144 mmol/L (136-145) 07/28/25 19:26 Potassium 3.7 mmol/L (3.5-5.1) 07/28/25 19:26 Chloride 110 mmol/L (98-107) H 07/28/25 19:26 Carbon Dioxide 25 mmol/L (22-29) 07/28/25 19:26 Anion Gap 12.7 (5-19) 07/28/25 19:26 BUN 19 mg/dL (6-20) 07/28/25 19:26 Creatinine 0.8 mg/dL (0.7-1.2) 07/28/25 19:26 GFR Calculation 101.9 mL/min (90-130) 07/28/25 19:26 Glucose 87 mg/dL (65-115) 07/28/25 19:26 Calculated Osmolality 300 mOsm/kg (285-295) H 07/28/25 19:26 Calcium 8.4 mg/dL (8.5-10.5) L 07/28/25 19:26 Total Bilirubin 0.2 mg/dL (0.15-1.2) 07/28/25 19:26 AST 17 U/L (0-40) 07/28/25 19:26 ALT 10 U/L (0-41) 07/28/25 19:26 Alkaline Phosphatase 98 U/L (40-130) 07/28/25 19:26 Troponin T Baseline 7 ng/L (0-15) 07/28/25 19:26 Troponin T 120 Minute 7.28 ng/L (0-15) 07/28/25 21:25 Delta Troponin T 0.28 ABS# (0-10) 07/28/25 21: Total Protein 6.2 g/dL (6.6-8.7) L 07/28/25 19:26 Albumin 4.2 g/dL (3.5-5.2) 07/28/25 19:26 Globulin 2.0 g/dL (1.3-4.6) 11/27/25 19:26 All radiology interpretation(s) finalized by discharge EKG Data EKG 1: I personally reviewed and interpreted this EKG as follows: Interpretation: EKG 07/28/2025 1921 sinus rhythm occasional PVCs no acute ST changes rate of 76. [place] interval 141 QTc 399. Compared to the EKG 09/27/2023 no acute changes noted Computer generated interpretation: Chest X-Ray 07/28/25 18:18 IMPRESSION: No acute findings. Discharge Plan Discharge Patient Disposition: Home Clinical Impression: Atypical chest pain, Methamphetamine use Condition: Stable Prescriptions: No Action lisinopril 5 mg tablet 5 mg PO DAILY Qty: 30 5RF hydroxyzine HCl 25 mg tablet 25 mg PO TID PRN (Reason: anxiety) Qty: 21 0RF Discharge Orders: Discharge ED (Routine); Ordered 07/28/25 Ordered By: Kyle Manuel Discharge Diet: Usual diet Discharge Activity: Increase activity as tolerated Patient Instructions: Opioid Safety, Pain Management, Patient Portal & Wolf Instructions Activity Restrictions/Additional Instructions: Thank you for choosing [facility] for your healthcare needs today. It is very important that you follow up as instructed or that you return to the Emergency Department should you have concerns or if your condition changes or worsens in any way. Emergency department visits are focused on emergent conditions, in some cases you may require further evaluation on an outpatient basis. You were seen in the emergency room complaints of chest discomfort. Your cardiac enzymes and EKG does not show any acute changes. There is no sign of any acute coronary syndrome. Her symptoms are likely related to the use of the methamphetamine. Follow-up with her primary care doctor. (Please note that included in your discharge packet is information concerning opioid safety and pain management. This information is given to all patients were discharged from the ER regardless of their discharge diagnosis or the medicines they usually take or are prescribed.) Print Language: German Coding Level of Care Code ED Car Runner for Tray Castillo
--- NOTE | 2025-07-28 19:31 | PC.NURSE ---
PT STATES HE TOOK 324MG ASPIRIN PRIOR TO ARRIVAL.
[2025-07-28 19:32] LABS: Hematocrit 44.6 % (37-53); Hemoglobin 14.60 g/dL (11.27-16.99); Mean Corpuscular HGB Conc 32.7 g/dL (30-55); Mean Corpuscular Hemoglobin 31.1 pg (27-33); Mean Corpuscular Volume 95.1 fl (82-101); Nucleated Red Blood Cells % 0 %; Platelet Count 241 10^3/cmm (157-399); Red Blood Count 4.69 10^6/uL (3.85-5.65); White Blood Count 9.67 10^3/uL (3.29-11.43)
[2025-07-28 19:55] LABS: Alanine Aminotransferase 10 U/L (0-41); Albumin Level 4.2 g/dL (3.5-5.2); Alkaline Phosphatase 98 U/L (40-130); Blood Urea Nitrogen 19 mg/dL (6-20); Calcium 8.4 mg/dL (8.5-10.5); Carbon Dioxide 25 mmol/L (22-29); Chloride 110 mmol/L (98-107); Globulin 2.0 g/dL (1.3-4.6); Glucose 87 mg/dL (65-115); Osmolality Calculated 300 mOsm/kg (285-295); Sodium 144 mmol/L (136-145); Total Protein 6.2 g/dL (6.6-8.7); Troponin(5th) Baseline 7 ng/L (0-15)
[2025-07-28 20:01] LABS: Anion Gap 12.7 (5-19); Potassium 3.7 mmol/L (3.5-5.1)
[2025-07-28 20:02] LABS: Aspartate Amino Transferase 17 U/L (0-40)
[2025-07-28 22:03] LABS: Troponin 5 2HR 7.28 ng/L (0-15); Troponin 5 2HR Delta 0.28 ABS# (0-10)
[2025-07-28] MEDS: hyDRALAzine 20 mg/mL INJ 1 mL 10 MG IVP (22:55)
--- NOTE | 2025-07-29 10:33 | ECG_ITS ---
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 [email or web address]
== END 2025-07-28 23:09 | disposition home or self-care (01) ==
PROVIDERS: Emergency Provider Family Medicine
DX: R07.89 Other chest pain (principal); F15.10 Other stimulant abuse, uncomplicated; I10 Essential (primary) hypertension
CPT/HCPCS: 36415; 71045; 80053; 84484; 85025; 93005; 96374; 99285; J0360